=== PATIENT | female | born 1945 | race Caucasian/White ===

== ENCOUNTER 2021-05-06 09:43 | Inpatient (IN) ==
[2021-05-06] MEDS ORDERED: dexAMETHasone**PF** 10 MG/ML VIAL IV ONE (11:23)
[2021-05-06] MEDS ORDERED: ONDANSETRON INJ 2 MG/ML 2 ML VIAL IV STA (11:23)
[2021-05-06] MEDS: MoRPHine SULFATE 4 MG/ML 1 ML CARP\\VIAL IV PRN ×2 (11:48→13:31)
[2021-05-06 11:54] LABS: Basophils # (auto) 0.01 K/uL (0-0.2); Basophils % (auto) 0.1 %; Eosinophils # (auto) 0.23 K/uL (0-0.5); Eosinophils % (auto) 1.8 %; Hemoglobin 14.7 g/dL (12.0-16.0); Immature Granulocytes # (auto) 0.18 K/uL (0.00-0.02); Immature Granulocytes % (auto) 1.4 %; Lymphocytes # (auto) 1.77 K/uL (1.2-3.4); Lymphocytes % (auto) 13.7 %; Mean Corpuscular Hemoglobin 30.8 pg (25-34); Mean Corpuscular Hgb Conc 32.7 g/dL (32-36); Mean Corpuscular Volume 94.3 fL (80-100); Monocytes # (auto) 1.05 K/uL (0.11-0.59); Monocytes % (auto) 8.2 %; Neutrophils # (auto) 9.64 K/uL (1.4-6.5); Neutrophils % (auto) 74.8 %; Platelet Count 252 K/uL (130-400); RDW Coefficient of Variation 14.3 % (11.5-14.5); RDW Standard Deviation 49.1 fL (36.4-46.3); Red Blood Count 4.77 M/uL (4.2-5.4); White Blood Count 12.88 K/uL (4.8-10.8)
--- NOTE | 2021-05-06 12:03 | Emergency Department Note ---
Impression & Plan Spinal stenosis of lumbar region with radiculopathy, Lumbar radiculopathy ED Provider Note NAME: CHET MAYA AGE: 75 SEX: F : 1945 ARRIVES VIA: Walk-In INFORMANT: Patient, ED PROVIDER(S): Narinder Melissa DO CHIEF COMPLAINT: back pain HPI: The patient is a 75-year-old female who presented to emergency department for an evaluation of back pain and right leg pain. The patient has had problems with lumbar radiculopathy affecting her right leg. Her work-up is included an MRI which showed severe spinal stenosis. The patient's had injections and even tried therapy at home but does not appear to be doing well with her back pain. She was evaluated by her pain specialist and referred for orthopedic spine evaluation. The patient was felt to be a candidate for surgical intervention. She has been trying to manage this as an outpatient but returns emergency department today because of ongoing and worsening symptoms. She is been compliant with usual outpatient medication. She is finding it very difficult to put any weight on the right leg. She denies having any swelling. She does complain of some numbness especially on the right lateral aspect. ROS: See above HPI for pertinent positives & negatives. A total of 10 systems reviewed and were otherwise negative. PAST MEDICAL HISTORY: See Below PAST SURGICAL HISTORY: See Below FAMILY HISTORY: See Below SOCIAL HISTORY: See Below HOME MEDICATIONS: See Below ALLERGIES: See Below VITALS: See Below PHYSICAL EXAMINATION: GENERAL: The patient is awake and alert. The patient is somewhat anxious appearing and appears to be uncomfortable. EYES: The conjunctivae are clear. The pupils are round and reactive. EARS, NOSE, MOUTH AND THROAT: The nose is without any evidence of any deformity. NECK: The neck is nontender and supple. RESPIRATORY: Normal respiratory effort is noted there is no evidence of wheezing rhonchi or rales CARDIOVASCULAR: Regular rate and rhythm was noted to auscultation. Systolic murmur was suggested. GASTROINTESTINAL: The abdomen is soft. Abdomen is nontender. BACK: Low lumbar tenderness was noted to palpation. Range of motion does appear to elicit pain. MUSCULOSKELETAL/EXTREMITIES: There is no evidence of gross deformity full range of motion is noted in the hips and shoulders. SKIN: Skin is warm and dry. Pulses are symmetric in both feet. NEUROLOGIC: Patient is awake alert and oriented x3. The patient does have pain and uncomfortable sensation with straight leg raise on the right. Patellar tendon reflexes 1+ in the right knee and 2+ in the left knee. The patient is able to extend both toes. MEDICAL DECISION MAKING: The patient is a 75-year-old female who presented to the emergency department for an evaluation of back pain and lumbar radiculopathy. The patient has been having worsening symptoms in her right leg. She is established with a spinal specialist here. Given the patient's worsening and ongoing symptoms she was sent to the emergency department for further evaluation. I discussed her condition with the orthopedic spinal specialist. She may require surgical intervention but will require inpatient management for pain control. For this reason [facility] will [facility] the patient in the emergency department for further management and disposition. She was treated with pain medication in the emergency department. She was given a dose of Decadron. Triage Nursing notes reviewed. Prior medical records reviewed Vital Signs: reviewed and remarkable for no significant abnormalities Differential diagnosis: Musculoskeletal, disc herniation, fracture, metastatic disease, cord compression, discitis, sciatica, cauda equina, infection, aortic disease, renal colic, gastrointestinal, as well as other pathologies. ER treatment provided: See below Diagnostics interpreted by me: ECG: EKG was obtained in the emergency department. My interpretation is sinus rhythm at 81 bpm. PACs were noted. Diffuse ST segment abnormalities were noted. This was compared to a tracing from September [id number]. The ectopy is new otherwise no changes were noted. Cardiac Monitoring: An order was placed for continuous cardiac monitoring. The monitor shows a rate of 91 bpm with sinus rhythm. Laboratory studies: As stated above and show below. Imaging studies: See below Consultation(s): I discussed this case with Dr. Moise who is the patient's primary orthopedic flow specialist. I discussed this case with Dr. Aquino who [facility] She will evaluate the patient in the emergency department. 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 shellfish derived Allergy Severe SEAFOOD - Verified 05/06/21 11:50 DIFF BREATHING,HIVES,RASH iodine Allergy Unknown UNKNOWN Verified 05/06/21 11:50 Sulfa (Sulfonamide Allergy Unknown REDNESS/BURNING Verified 05/06/21 11:50 Antibiotics) OF SKIN amoxicillin Allergy Verified 05/06/21 13:25 terconazole [From Terazol 3] Allergy Verified 05/06/21 13:25 Home Meds Home Medications Medication Instructions Recorded Confirmed albuterol sulfate 90 mcg/actuation 2 puffs INH QID 03/26/18 05/06/21 aerosol inhaler (Ventolin HFA) aspirin 81 mg tablet,delayed 81 mg PO BID 03/26/18 05/06/21 release (Adult Low Dose Aspirin) diltiazem HCl 120 mg capsule,24 120 mg PO DAILY 06/12/20 05/06/21 hr,extended release epinephrine 0.3 mg/0.3 mL 0.3 mg IM Q15M PRN 09/18/20 05/06/21 injection, auto-injector lactobacillus combination no.8 3 3,000 mmu cells PO DAILY 09/18/20 05/06/21 billion cell capsule (Adult Probiotic) psyllium husk 0.4 gram capsule 0.4 g PO DAILY 09/18/20 05/06/21 (Daily Fiber) bisacodyl 5 mg tablet,delayed 10 mg PO DAILY tab 04/02/21 05/06/21 release (Dulcolax (bisacodyl)) fluticasone 250 mcg-salmeterol 50 1 inh INHALATION Q12H 05/06/21 05/06/21 mcg/dose blistr powdr for inhalation (Advair Diskus) fluticasone propionate 50 2 spray INTRANASAL DAILY PRN 05/06/21 05/06/21 mcg/actuation nasal spray,suspension lifitegrast 5 % eye drops in a 1 drp OPB BID 05/06/21 05/06/21 dropperette (Xiidra) pregabalin 150 mg capsule (Lyrica) 150 mg PO BID PRN 05/06/21 05/06/21 Previous Rx's Medication Instructions Recorded baclofen 10 mg tablet 10 mg PO TID PRN #90 tab 02/15/21 diclofenac sodium 1 % topical gel 2 g TOP QID PRN #900 g 02/15/21 tapentadol 50 mg tablet (Nucynta) 50 mg PO TID PRN #60 tab MDD 3 tabs 04/30/21 Results & Data (ED) Vital Signs Vital Signs - 24 hr 05/06/21 10:08 05/06/21 11:13 05/06/21 12:00 Temperature 36.7 C Temperature Source Temporal Artery Scan Pulse Rate 94 H Pulse Rate [Finger] 78 Respiratory Rate 18 18 Respiratory Effort / Characteristics Non-Labored Respiratory Depth Normal Respiratory Pattern Regular Blood Pressure 157/123 H Blood Pressure [Left Arm] 139/81 Blood Pressure Mean 134 Blood Pressure Mean [Left Arm] 100 Blood Pressure Position [Left Arm] Pulse Oximetry 95 95 95 Oxygen Delivery Method Room Air Room Air Room Air Sepsis Recent Fever Within 48 Hours No Sepsis New/Unexplained Change in Mental Status No Sepsis Action Taken by Nursing No Action Required 05/06/21 12:04 Temperature Temperature Source Pulse Rate Pulse Rate [Finger] 74 Respiratory Rate 16 Respiratory Effort / Characteristics Respiratory Depth Respiratory Pattern Blood Pressure Blood Pressure [Left Arm] 117/64 Blood Pressure Mean Blood Pressure Mean [Left Arm] 81 Blood Pressure Position [Left Arm] Sitting Pulse Oximetry 94 Oxygen Delivery Method Room Air Sepsis Recent Fever Within 48 Hours Sepsis New/Unexplained Change in Mental Status Sepsis Action Taken by Assisted Medications Current Medication List: was personally reviewed by me Laboratory Data Attestation: I reviewed the patient's lab results. Result diagrams: 05/06/21 11:46 05/06/21 11:46 Lab Results 05/06/21 05/06/21 05/06/21 Range/Units 11:46 11:46 11:46 WBC 12.88 H (4.8-10.8) K/uL RBC 4.77 (4.2-5.4) M/uL Hgb 14.7 (12.0-16.0) g/dL Hct 45.0 (37-47) % MCV 94.3 (80-100) fL MCH 30.8 (25-34) pg MCHC 32.7 (32-36) g/dL RDW Std Deviation 49.1 H (36.4-46.3) fL RDW Coeff of Aliza 14.3 (11.5-14.5) % Plt Count 252 (130-400) K/uL MPV 10.0 (7.4-10.4) fL Immature Gran % (Auto) 1.4 % Neut % (Auto) 74.8 % Lymph % (Auto) 13.7 % [place] % (Auto) 8.2 % Eos % (Auto) 1.8 % Baso % (Auto) 0.1 % Neut # (Auto) 9.64 H (1.4-6.5) K/uL Lymph # (Auto) 1.77 (1.2-3.4) K/uL [place] # (Auto) 1.05 H (0.11-0.59) K/uL Eos # (Auto) 0.23 (0-0.5) K/uL Baso # (Auto) 0.01 (0-0.2) K/uL Immature Gran # (Auto) 0.18 H (0.00-0.02) K/uL PT 9.5 (9.0-12.0) Seconds INR 0.9 (0.9-1.1) Sodium 140 (136-145) mmol/L Potassium 3.1 L (3.5-5.1) mmol/L Chloride 103 (98-107) mmol/L Carbon Dioxide 27 (21-32) mmol/L Anion Gap 10.0 (3-11) BUN 10 (7-18) mg/dl Creatinine 0.78 (0.6-1.2) mg/dl Est Cr Clr Drug Dosing Not Reportable Est GFR ( Amer) 86.8 ml/min Est GFR (Non-Af Amer) 74.9 ml/min BUN/Creatinine Ratio 13.0 (10-20) Glucose 93 (70-99) mg/dl Calcium 9.3 (8.5-10.1) mg/dl Total Bilirubin 0.7 (0.2-1) mg/dl AST 18 (15-37) U/L ALT 39 (12-78) U/L Alkaline Phosphatase 75 (45-117) U/L Troponin I < 0.015 (0-0.045) ng/ml Total Protein 6.9 (6.4-8.2) gm/dl Albumin 3.4 (3.4-5.0) gm/dl Globulin 3.5 (2.5-4.0) gm/dl Albumin/Globulin Ratio 1.0 (0.9-2) Lipase 97 (73-393) U/L Urine Color Urine Appearance (Clear) Urine pH (4.5-7.5) Ur Specific [place] (1.000-1.030) Urine Protein (Negative) Urine Glucose (UA) (Negative) Urine Ketones (Negative) Urine Blood (Negative) Urine Nitrite (Negative) Urine Bilirubin (Negative) Urine Urobilinogen (Negative) Ur Leukocyte Esterase (Negative) Urine WBC (Auto) (0-5) /hpf Urine RBC (Auto) (0-4) /hpf U Hyaline Cast (Auto) (0-5) /lpf U Epithel Cells (Auto) (0-5) /lpf Urine Bacteria (Auto) (Negative) SARS-CoV-2, RNA, NAAT (NEGATIVE) 05/06/21 05/06/21 Range/Units 11:55 11:55 WBC (4.8-10.8) K/uL RBC (4.2-5.4) M/uL Hgb (12.0-16.0) g/dL Hct (37-47) % MCV (80-100) fL MCH (25-34) pg MCHC (32-36) g/dL RDW Std Deviation (36.4-46.3) fL RDW Coeff of Aliza (11.5-14.5) % Plt Count (130-400) K/uL MPV (7.4-10.4) fL Immature Gran % (Auto) % Neut % (Auto) % Lymph % (Auto) % [place] % (Auto) % Eos % (Auto) % Baso % (Auto) % Neut # (Auto) (1.4-6.5) K/uL Lymph # (Auto) (1.2-3.4) K/uL [place] # (Auto) (0.11-0.59) K/uL Eos # (Auto) (0-0.5) K/uL Baso # (Auto) (0-0.2) K/uL Immature Gran # (Auto) (0.00-0.02) K/uL PT (9.0-12.0) Seconds INR (0.9-1.1) Sodium (136-145) mmol/L Potassium (3.5-5.1) mmol/L Chloride (98-107) mmol/L Carbon Dioxide (21-32) mmol/L Anion Gap (3-11) BUN (7-18) mg/dl Creatinine (0.6-1.2) mg/dl Est Cr Clr Drug Dosing Est GFR ( Amer) ml/min Est GFR (Non-Af Amer) ml/min BUN/Creatinine Ratio (10-20) Glucose (70-99) mg/dl Calcium (8.5-10.1) mg/dl Total Bilirubin (0.2-1) mg/dl AST (15-37) U/L ALT (12-78) U/L Alkaline Phosphatase (45-117) U/L Troponin I (0-0.045) ng/ml Total Protein (6.4-8.2) gm/dl Albumin (3.4-5.0) gm/dl Globulin (2.5-4.0) gm/dl Albumin/Globulin Ratio (0.9-2) Lipase (73-393) U/L Urine Color Yellow Urine Appearance Clear (Clear) Urine pH 6.0 (4.5-7.5) Ur Specific [place] 1.004 (1.000-1.030) Urine Protein Negative (Negative) Urine Glucose (UA) Negative (Negative) Urine Ketones Negative (Negative) Urine Blood Negative (Negative) Urine Nitrite Negative (Negative) Urine Bilirubin Negative (Negative) Urine Urobilinogen Negative (Negative) Ur Leukocyte Esterase 1+ H (Negative) Urine WBC (Auto) 5-10 H (0-5) /hpf Urine RBC (Auto) 0-4 (0-4) /hpf U Hyaline Cast (Auto) 0 (0-5) /lpf U Epithel Cells (Auto) 5-10 H (0-5) /lpf Urine Bacteria (Auto) 2+ H (Negative) SARS-CoV-2, RNA, NAAT NEGATIVE (NEGATIVE) Administered Medications Discontinued Medications Dexamethasone Sodium Phosphate (DexamethasonePf 10 Mg/Ml Vial) 10 mg IV NOW ONE Stop: 05/06/21 11:24 Last Admin: 05/06/21 11:49 Dose: 10 mg Documented by: [id number] Morphine Sulfate (Morphine Sulfate 4 Mg/Ml 1 Ml Carp\Vial) 4 mg IV Q15M PRN PRN Reason: Pain Stop: 05/20/21 11:22 Last Admin: 05/06/21 13:31 Dose: 4 mg Documented by: [id number] Admin: 05/06/21 11:48 Dose: 4 mg Documented by: [id number] Ondansetron HCl (Ondansetron Inj 2 Mg/Ml 2 Ml Vial) 4 mg IV NOW STA Stop: 05/06/21 11:24 Last Admin: 05/06/21 11:49 Dose: 4 mg Documented by: [id number] Potassium Chloride (Potassium Chloride Crtab 20 Meq Tabcr) 40 meq PO NOW STA Stop: 05/06/21 12:36 Last Admin: 05/06/21 13:31 Dose: 40 meq Documented by: [id number] Discharge Plan Visit Data Chief Complaint: Back Injury/Pain Stated Complaint: RIGHTSIDE BACK PAIN ED Provider: Narinder Melissa Discharge Problem: Spinal stenosis of lumbar region with radiculopathy, Lumbar radiculopathy Patient Disposition: Being Evaluated by Hospitalist Discharge Instructions Interventions: ED Discharge Assessment Last Done: 05/06/21 15:16
[2021-05-06 12:05] LABS: INR 0.9 (0.9-1.1); Prothrombin Time 9.5 Seconds (9.0-12.0)
[2021-05-06 12:10] LABS: Appearance Urine Clear (Clear); Bacteria Urine Automated 2+ (Negative); Bilirubin Urine Negative (Negative); Blood Urine Negative (Negative); Cast Urine Automated 0 /lpf (0-5); Color Urine Yellow; Glucose Urine UA Negative (Negative); Ketones Urine Negative (Negative); Leukocyte Esterase Urine 1+ (Negative); Nitrite Urine Negative (Negative); Protein Urine Negative (Negative); RBC Urine Automated 0-4 /hpf (0-4); Specific Gravity Urine 1.004 (1.000-1.030); Urobilinogen Urine Negative (Negative)
[2021-05-06 12:12] LABS: Alanine Aminotransferase 39 U/L (12-78); Albumin Level 3.4 gm/dl (3.4-5.0); Aspartate Aminotransferase 18 U/L (15-37); Blood Urea Nitrogen 10 mg/dl (7-18); Calcium 9.3 mg/dl (8.5-10.1); Carbon Dioxide 27 mmol/L (21-32); Chloride 103 mmol/L (98-107); Est GFR (African American) 86.8 ml/min; Est GFR (Non-African American) 74.9 ml/min; Glucose 93 mg/dl (70-99); Lipase 97 U/L (73-393); Potassium 3.1 mmol/L (3.5-5.1); Sodium 140 mmol/L (136-145)
[2021-05-06 12:16] LABS: Alkaline Phosphatase 75 U/L (45-117); Bilirubin,Total 0.7 mg/dl (0.2-1); Globulin 3.5 gm/dl (2.5-4.0); Total Protein 6.9 gm/dl (6.4-8.2); Troponin I < 0.015 ng/ml (0-0.045)
--- NOTE | 2021-05-06 12:34 | History & Physical Report ---
Date of Service May 06, 2021 Assessment & Plan (1) Spinal stenosis of lumbar region with radiculopathy: Plan: Presents with intractable pain despite numerous interventions as an outpatient Needs admission for pain control and urgent surgical evaluation She recently had an MRI as an outpatient several weeks ago which shows significant spinal stenosis -Admit to medical-telemetry unit given frequent ectopy for further evaluation -Consult orthopedic spine surgery -Keep n.p.o. after midnight in case of surgery on Friday, but could advance diet if no surgery to be performed -Continue IV morphine as needed for severe pain, as needed Nucynta as needed for moderate pain -We will hold off on any further steroids at this time-she recently completed 2 Medrol Dosepaks in a row -Continue home Lyrica For preoperative evaluation, given systolic murmur on exam and PACs-check echocardiogram Otherwise, she is able to achieve at least 4 METS without any angina If echocardiogram without significant valvular disease, she would be at average perioperative cardiovascular risk for this intermediate risk procedure and should proceed with surgery if desired. Discussed all this with the patient. (2) Asthma: Plan: Has been having some wheezing recently No hypoxia here Continue home albuterol, Flonase nasal spray, and fluticasone/Vilanterol inhaler once daily (3) HTN (hypertension), benign: Plan: Blood pressures are elevated Continue home diltiazem -Could titrate up on diltiazem dose if needed (4) Osteoporosis: Plan: No acute issues Receives Prolia shots every 6 months (5) History of breast cancer: Plan: In remission No longer uses any maintenance medications (6) Migraines: Plan: Uses otpl-cfc-snwawsu medications for abortive therapy No current issues (7) Neuropathy: Plan: Continue Lyrica 150 mg p.o. at bedtime (8) Chronic constipation: Plan: Worsened in setting of chronic opioid use Continue home Motegrity if available, daily bisacodyl, fiber supplement (9) Sjogrens syndrome: Plan: Continue home eyedrops (10) Hypokalemia: Plan: Replaced with p.o. potassium chloride 20 mEq Follow BMP and magnesium in the morning (11) Abnormal finding on urinalysis: Plan: Patient has no urinary symptoms There are as many epithelial cells in his WBCs in the urinalysis and the sample may be contaminated Follow urine culture Hold off on antibiotics at this time Leukocytosis on CBC is most likely secondary to recent corticosteroid use as an outpatient Plan: DVT prophylaxis-SCDs Disposition-admit to medical floor telemetry History of Present Illness Chief Complaint: Back and right lower extremity pain Primary Care Provider: Norah Cast This patient is a 75-year-old female with a longstanding history of lower back pain with right lower extremity radiculopathy and right hip pain, breast cancer in remission, asthma, migraines, HTN, osteoporosis, chronic constipation, Sjogren's syndrome, neuropathy, who presents to the ER with intractable lower back pain with right lower extremity radiculopathy making it extremely difficult to walk more than a couple of steps. She has received numerous interventions with pain management in the past including RFA's, AGATA's, and SI joint injections. She most recently had a right trochanteric bursitis injection with orthopedics. She is on chronic opioid therapy as well as with Lyrica and still with not much relief. She has been seen by orthopedic spine surgery as an outpatient and presents to the ER for intractable pain and further more urgent evaluation by spine surgery for surgical intervention. From a cardiac standpoint, patient reports she had a nuclear stress test in the recent past that was normal, and she can crawl up and down the stairs currently without any chest pain or shortness of breath. She has never had any angina or other cardiac issues. In the ER, she was given IV Decadron and IV morphine. She will be admitted to the hospital service for intractable lower back pain with right lower extremity radiculopathy and preoperative evaluation. Allergies Allergy/AdvReac Type Severity Reaction Status Date / Time [place] And Derivatives Allergy Severe EXTREME Verified 05/06/21 11:50 BREATHING DIFFICULTY. shellfish derived Allergy Severe SEAFOOD - Verified 05/06/21 11:50 DIFF BREATHING,HIVES,RASH iodine Allergy Unknown UNKNOWN Verified 05/06/21 11:50 Sulfa (Sulfonamide Allergy Unknown REDNESS/BURNING Verified 05/06/21 11:50 Antibiotics) OF SKIN amoxicillin Allergy Verified 05/06/21 13:25 terconazole [From Terazol 3] Allergy Verified 05/06/21 13:25 Home Medications Medication Instructions Recorded Confirmed Type albuterol sulfate 90 mcg/actuation 2 puffs INH QID 03/26/18 05/06/21 History aerosol inhaler (Ventolin HFA) aspirin 81 mg tablet,delayed 81 mg PO BID 03/26/18 05/06/21 History release (Adult Low Dose Aspirin) diltiazem HCl 120 mg capsule,24 120 mg PO DAILY 06/12/20 05/06/21 History hr,extended release epinephrine 0.3 mg/0.3 mL 0.3 mg IM Q15M PRN 09/18/20 05/06/21 History injection, auto-injector lactobacillus combination no.8 3 3,000 mmu cells PO DAILY 09/18/20 05/06/21 History billion cell capsule (Adult Probiotic) psyllium husk 0.4 gram capsule 0.4 g PO DAILY 09/18/20 05/06/21 History (Daily Fiber) baclofen 10 mg tablet 10 mg PO TID PRN #90 tab 02/15/21 05/06/21 Rx diclofenac sodium 1 % topical gel 2 g TOP QID PRN #900 g 02/15/21 05/06/21 Rx bisacodyl 5 mg tablet,delayed 10 mg PO DAILY tab 04/02/21 05/06/21 History release (Dulcolax (bisacodyl)) tapentadol 50 mg tablet (Nucynta) 50 mg PO TID PRN #60 tab MDD 3 tabs 04/30/21 05/06/21 Rx fluticasone 250 mcg-salmeterol 50 1 inh INHALATION Q12H 05/06/21 05/06/21 History mcg/dose blistr powdr for inhalation (Advair Diskus) fluticasone propionate 50 2 spray INTRANASAL DAILY PRN 05/06/21 05/06/21 History mcg/actuation nasal spray,suspension lifitegrast 5 % eye drops in a 1 drp OPB BID 05/06/21 05/06/21 History dropperette (Xiidra) pregabalin 150 mg capsule (Lyrica) 150 mg PO BID PRN 05/06/21 05/06/21 History prucalopride 2 mg tablet 2 mg PO DAILY 05/07/21 05/07/21 History (Motegrity) Past Med/Surg History Medical History (Updated 05/07/21 @ 00:40 by Genna Aquino MD) Asthma Chronic constipation Degenerative joint disease of left midfoot History of breast cancer History of pneumothorax HTN (hypertension), benign Left knee DJD Migraines Neuropathy Osteoporosis Pes anserinus bursitis of right knee Sjogrens syndrome Spinal stenosis of lumbar region with radiculopathy Thyroid nodule Surgical History (Updated 05/07/21 @ 00:37 by Genna Aquino MD) History of appendectomy History of carpal tunnel release of both wrists History of cataract extraction History of cholecystectomy History of lumbar spinal fusion 2014 History of lumpectomy of right breast History of total knee arthroplasty Family History (Updated 05/07/21 @ 00:30 by Genna Aquino MD) Other Family history non-contributory Social History (Updated 05/07/21 @ 00:30 by Genna Aquino MD) Smoking Status: Never smoker Hx Alcohol Use: Yes Alcohol type: beer Hx Substance Use: No Preferred Language: [place] Communication Ability: Effective Signal Integrity Engineer Required: No Beliefs That Will Affect Care: None marital status: / Current Living Situation: Alone Feels Safe at Home: Yes Assistive Devices: Cane, Denture - Upper and Glasses Review of Systems Review of Systems: All systems reviewed & are unremarkable except as noted in HPI & below No incontinence to bowel or bladder Physical Exam Constitutional: WD/WN, vitals as above Eyes: PERRL, conjunctivae normal, anicteric sclerae ENMT: external ear and nose normal, oropharynx normal Neck: trachea midline, no thyromegaly Respiratory: normal respiratory effort, lungs clear to auscultation Cardiovascular: Rate/Rhythm: regular rate and regular rhythm (With frequent ectopy) Heart Sounds: + murmur (2/6 systolic murmur heard best at the right upper sternal border) Vessels: normal peripheral pulses; no JVD, no carotid bruit and no abdominal aortic bruit Extremities: no edema Chest (Breasts): Chest: normal inspection of chest Gastrointestinal (Abdomen): normal bowel sounds, soft, nontender, no hepatosplenomegaly Musculoskeletal: Extremities: extremities normal to inspection; no cyanosis and no clubbing Skin: no rashes, warm and dry Neurologic: moves all extremities and awake; no focal motor deficits Positive straight leg raise on the right DTRs diminished throughout bilateral lower extremities Sensation intact to light touch throughout lower extremities Psychiatric: A+Ox3, euthymic affect Lymphatic: no lymphedema Results & Data Results & Data ([facility]) Vital Signs (Past 12 Hours) Vital Signs Temp Pulse Pulse Resp BP BP Pulse Ox 05/06/21 12:04 74 16 117/64 94 05/06/21 12:00 95 05/06/21 11:13 78 18 139/81 95 05/06/21 10:08 36.7 C 94 H 18 157/123 H 95 Laboratory Results 05/06/21 05/06/21 05/06/21 Range/Units 11:55 11:55 11:46 WBC (4.8-10.8) K/uL RBC (4.2-5.4) M/uL Hgb (12.0-16.0) g/dL Hct (37-47) % MCV (80-100) fL MCH (25-34) pg MCHC (32-36) g/dL RDW Std Deviation (36.4-46.3) fL RDW Coeff of Aliza (11.5-14.5) % Plt Count (130-400) K/uL MPV (7.4-10.4) fL Immature Gran % (Auto) % Neut % (Auto) % Lymph % (Auto) % Haines % (Auto) % Eos % (Auto) % Baso % (Auto) % Neut # (Auto) (1.4-6.5) K/uL Lymph # (Auto) (1.2-3.4) K/uL Haines # (Auto) (0.11-0.59) K/uL Eos # (Auto) (0-0.5) K/uL Baso # (Auto) (0-0.2) K/uL Immature Gran # (Auto) (0.00-0.02) K/uL PT (9.0-12.0) Seconds INR (0.9-1.1) Sodium (136-145) mmol/L Potassium (3.5-5.1) mmol/L Chloride (98-107) mmol/L Carbon Dioxide (21-32) mmol/L Anion Gap (3-11) BUN (7-18) mg/dl Creatinine (0.6-1.2) mg/dl Est Cr Clr Drug Dosing Est GFR ( Amer) ml/min Est GFR (Non-Af Amer) ml/min BUN/Creatinine Ratio (10-20) Glucose (70-99) mg/dl Calcium (8.5-10.1) mg/dl Total Bilirubin (0.2-1) mg/dl AST (15-37) U/L ALT (12-78) U/L Alkaline Phosphatase (45-117) U/L Troponin I (0-0.045) ng/ml Total Protein (6.4-8.2) gm/dl Albumin (3.4-5.0) gm/dl Globulin (2.5-4.0) gm/dl Albumin/Globulin Ratio (0.9-2) Lipase (73-393) U/L Urine Color Yellow Urine Appearance Clear (Clear) Urine pH 6.0 (4.5-7.5) Ur Specific [place] 1.004 (1.000-1.030) Urine Protein Negative (Negative) Urine Glucose (UA) Negative (Negative) Urine Ketones Negative (Negative) Urine Blood Negative (Negative) Urine Nitrite Negative (Negative) Urine Bilirubin Negative (Negative) Urine Urobilinogen Negative (Negative) Ur Leukocyte Esterase 1+ H (Negative) Urine WBC (Auto) 5-10 H (0-5) /hpf Urine RBC (Auto) 0-4 (0-4) /hpf U Hyaline Cast (Auto) 0 (0-5) /lpf U Epithel Cells (Auto) 5-10 H (0-5) /lpf Urine Bacteria (Auto) 2+ H (Negative) Hepatitis C Ab Screen Pending SARS-CoV-2, RNA, NAAT NEGATIVE (NEGATIVE) 05/06/21 05/06/21 05/06/21 Range/Units 11:46 11:46 11:46 WBC 12.88 H (4.8-10.8) K/uL RBC 4.77 (4.2-5.4) M/uL Hgb 14.7 (12.0-16.0) g/dL Hct 45.0 (37-47) % MCV 94.3 (80-100) fL MCH 30.8 (25-34) pg MCHC 32.7 (32-36) g/dL RDW Std Deviation 49.1 H (36.4-46.3) fL RDW Coeff of Aliza 14.3 (11.5-14.5) % Plt Count 252 (130-400) K/uL MPV 10.0 (7.4-10.4) fL Immature Gran % (Auto) 1.4 % Neut % (Auto) 74.8 % Lymph % (Auto) 13.7 % Haines % (Auto) 8.2 % Eos % (Auto) 1.8 % Baso % (Auto) 0.1 % Neut # (Auto) 9.64 H (1.4-6.5) K/uL Lymph # (Auto) 1.77 (1.2-3.4) K/uL Haines # (Auto) 1.05 H (0.11-0.59) K/uL Eos # (Auto) 0.23 (0-0.5) K/uL Baso # (Auto) 0.01 (0-0.2) K/uL Immature Gran # (Auto) 0.18 H (0.00-0.02) K/uL PT 9.5 (9.0-12.0) Seconds INR 0.9 (0.9-1.1) Sodium 140 (136-145) mmol/L Potassium 3.1 L (3.5-5.1) mmol/L Chloride 103 (98-107) mmol/L Carbon Dioxide 27 (21-32) mmol/L Anion Gap 10.0 (3-11) BUN 10 (7-18) mg/dl Creatinine 0.78 (0.6-1.2) mg/dl Est Cr Clr Drug Dosing Not Reportable Est GFR ( Amer) 86.8 ml/min Est GFR (Non-Af Amer) 74.9 ml/min BUN/Creatinine Ratio 13.0 (10-20) Glucose 93 (70-99) mg/dl Calcium 9.3 (8.5-10.1) mg/dl Total Bilirubin 0.7 (0.2-1) mg/dl AST 18 (15-37) U/L ALT 39 (12-78) U/L Alkaline Phosphatase 75 (45-117) U/L Troponin I < 0.015 (0-0.045) ng/ml Total Protein 6.9 (6.4-8.2) gm/dl Albumin 3.4 (3.4-5.0) gm/dl Globulin 3.5 (2.5-4.0) gm/dl Albumin/Globulin Ratio 1.0 (0.9-2) Lipase 97 (73-393) U/L Urine Color Urine Appearance (Clear) Urine pH (4.5-7.5) Ur Specific [place] (1.000-1.030) Urine Protein (Negative) Urine Glucose (UA) (Negative) Urine Ketones (Negative) Urine Blood (Negative) Urine Nitrite (Negative) Urine Bilirubin (Negative) Urine Urobilinogen (Negative) Ur Leukocyte Esterase (Negative) Urine WBC (Auto) (0-5) /hpf Urine RBC (Auto) (0-4) /hpf U Hyaline Cast (Auto) (0-5) /lpf U Epithel Cells (Auto) (0-5) /lpf Urine Bacteria (Auto) (Negative) Hepatitis C Ab Screen SARS-CoV-2, RNA, NAAT (NEGATIVE) Diagnostic Findings Chest X-Ray 05/06/21 13:17 XR chest 1V portable CLINICAL HISTORY: hypoxia,preop. Evaluate cardiopulmonary status COMPARISON STUDY: No previous studies for comparison. TECHNIQUE: 1 view of the chest FINDINGS: Single frontal view of the chest demonstrates the cardiomediastinal silhouette to be within normal limits. There is a decreased inspiratory effort with elevation of the hemidiaphragms and crowding of the bronchovascular markings at the lung bases and centrally. The lungs are clear of alveolar opacities. There is no evidence for pleural effusion. There is no evidence for vascular congestion. There is no acute osseous pathology. IMPRESSION: There is a decreased inspiratory effort with otherwise no acute chest disease. ACT 112: Negative or not required by law. Electronically signed by: Van Baumann M.D. 05/06/2021 2:18 PM ECG Additional Comments: Normal sinus rhythm with frequent PACs, prolonged QTC at 483 No ischemic changes Code Status & VTE Plan Code Status Full code VTE Prophylaxis Plan VTE Prophylaxis will be ordered: Yes PG Care Time/CCT Total # of Minutes Spent Total Time Spent with Patient: Total time spent is greater than 50% in coordination of care (as documented) at patient's floor/unit and/or counseling patient: Coding Level of Care Code 28295 Initial Inpt Care Lvl 3 Diagnoses Spinal stenosis of lumbar region with radiculopathy M48.061; M54.16 Asthma J45.909 HTN (hypertension), benign I10 Osteoporosis M81.0 History of breast cancer Z85.3 Migraines G43.909 Neuropathy G62.9 Chronic constipation K59.09 Sjogrens syndrome M35.00 Hypokalemia E87.6 Abnormal finding on urinalysis R82.90
[2021-05-06] MEDS ORDERED: POTASSIUM CHLORIDE CRTAB 20 MEQ TABCR PO STA (12:35)
--- NOTE | 2021-05-06 14:19 | XRay Report ---
XR chest 1V portable CLINICAL HISTORY: hypoxia,preop. Evaluate cardiopulmonary status COMPARISON STUDY: No previous studies for comparison. TECHNIQUE: 1 view of the chest FINDINGS: Single frontal view of the chest demonstrates the cardiomediastinal silhouette to be within normal li mits. There is a decreased inspiratory effort with elevation of the hemidiaphragms and crowding of th e bronchovascular markings at the lung bases and centrally. The lungs are clear of alveolar opacities . There is no evidence for pleural effusion. There is no evidence for vascular congestion. There is n o acute osseous pathology. IMPRESSION: There is a decreased inspiratory effort with otherwise no acute chest disease. ACT 112: Negative or not required by law. Electronically signed by: Van Baumann M.D. 05/06/2021 2:18 PM
--- NOTE | 2021-05-06 14:32 | XCELERA ---
[id number]
[2021-05-06] MEDS ORDERED: POLYETHYLENE (MIRALAX) 17 GM PACK PO PRN (15:41)
[2021-05-06] MEDS ORDERED: BACLOFEN 10 MG TAB PO PRN (15:41)
[2021-05-06] MEDS ORDERED: ACETAMINOPHEN 325 MG TAB PO PRN (15:41)
[2021-05-06] MEDS ORDERED: DICLOFENAC SOD 1% GEL 100 GM TUBE EXT PRN (15:41)
[2021-05-06] MEDS ORDERED: ONDANSETRON INJ 2 MG/ML 2 ML VIAL IV PRN (15:41)
[2021-05-06] MEDS ORDERED: FLUTICASONE PROPIONATE NA SPR 16 GM BTL NAE PRN (15:41)
[2021-05-06] MEDS ORDERED: INFLUENZA VACCINE HIGH DOSE PF 65+ 0.7 ML SYR IM ONE (16:50)
[2021-05-06] MEDS ORDERED: ALBUTEROL HFA 8 GM INHALER INH SCH (17:00)
--- NOTE | 2021-05-06 17:19 | Electrocardiogram Report ---
Test Reason : Blood Pressure : / mmHG Vent. Rate : 081 BPM Atrial Rate : 081 BPM P-R Int : 142 ms QRS Dur : 076 ms QT Int : 416 ms P-R-T Axes : 048 011 048 degrees QTc Int : 483 ms Poor data quality, interpretation may be adversely affected Sinus rhythm with Premature atrial complexes Abnormal ECG When compared with ECG of 03-SEP-2012 11:59, Premature atrial complexes are now Present QT has lengthened Confirmed by Eric Barger ([id number]) on 05/06/2021 5:18:43 PM Referred By: REFERRED SELF Confirmed By:Lucas Barger
[2021-05-06] MEDS ORDERED: TAPENTADOL HCL 50 MG TAB PO SCH (17:45)
[2021-05-06] MEDS: PREGABALIN 150 MG CAP PO SCH (17:49)
[2021-05-06] MEDS: TAPENTADOL HCL 50 MG TAB PO SCH (17:49)
[2021-05-06] MEDS: ALBUTEROL HFA 8 GM INHALER INH SCH (20:10)
[2021-05-06] MEDS: LIFITEGRAST 5% OP SCH (21:55)
[2021-05-06] MEDS: MoRPHine SULFATE 2 MG/ML CARP IV PRN (22:02)
[2021-05-07] MEDS: MoRPHine SULFATE 2 MG/ML CARP IV PRN ×2 (02:45→10:33)
[2021-05-07] MEDS: dilTIAZem ER 120 MG CAPCR PO SCH (07:29)
[2021-05-07] MEDS: bisacodyL 5 MG TABEC PO SCH (07:29)
[2021-05-07] MEDS: FLUTICASONE/VILANTEROL 200/25MCG 14 PUFFS/INHALER INH SCH (07:30)
[2021-05-07] MEDS: LIFITEGRAST 5% OP SCH ×2 (07:31→20:56)
[2021-05-07] MEDS: TAPENTADOL HCL 50 MG TAB PO SCH ×3 (07:34→21:00)
[2021-05-07] MEDS: ALBUTEROL HFA 8 GM INHALER INH SCH ×4 (08:02→20:10)
[2021-05-07] MEDS ORDERED: PSYLLIUM HUSK 0.4 GM PO SCH (09:00)
--- NOTE | 2021-05-07 11:09 | Orthopedic Consultation ---
Date of Consultation May 07, 2021 Assessment & Plan (1) Spinal stenosis of lumbar region with radiculopathy: At this time patient has known adjacent level spinal stenosis L3-L4 with severe spinal stenosis and neuroforaminal disease creating an L3-L4 radiculopathy. She is undergone extensive course of nonoperative care and now is requiring a lumbar decompression and fusion L3-L4 with removal of instrumentation L4-S1. History of Present Illness Reason for Consultation: Right leg pain and weakness Attending Physician: Dylan Fried DO History of Present Illness This is a 75-year-old female well-known to me the presents with steady decline in status. She has pain at lumbosacral junction rating into the right buttock anterior lateral thigh to just below her right knee. She is undergone extensive work-up including multiple injections without any long-term relief. Her pain is incapacitating she is unable to weight-bear and experiencing a strength deficit. Allergies Allergy/AdvReac Type Severity Reaction Status Date / Time [place] And Derivatives Allergy Severe EXTREME Verified 05/06/21 11:50 BREATHING DIFFICULTY. shellfish derived Allergy Severe SEAFOOD - Verified 05/06/21 11:50 DIFF BREATHING,HIVES,RASH iodine Allergy Unknown UNKNOWN Verified 05/06/21 11:50 Sulfa (Sulfonamide Allergy Unknown REDNESS/BURNING Verified 05/06/21 11:50 Antibiotics) OF SKIN amoxicillin Allergy Verified 05/06/21 13:25 terconazole [From Terazol 3] Allergy Verified 05/06/21 13:25 Home Medications Medication Instructions Recorded Confirmed Type albuterol sulfate 90 mcg/actuation 2 puffs INH QID 03/26/18 05/06/21 History aerosol inhaler (Ventolin HFA) aspirin 81 mg tablet,delayed 81 mg PO BID 03/26/18 05/06/21 History release (Adult Low Dose Aspirin) diltiazem HCl 120 mg capsule,24 120 mg PO DAILY 06/12/20 05/06/21 History hr,extended release epinephrine 0.3 mg/0.3 mL 0.3 mg IM Q15M PRN 09/18/20 05/06/21 History injection, auto-injector lactobacillus combination no.8 3 3,000 mmu cells PO DAILY 09/18/20 05/06/21 History billion cell capsule (Adult Probiotic) psyllium husk 0.4 gram capsule 0.4 g PO DAILY 09/18/20 05/06/21 History (Daily Fiber) baclofen 10 mg tablet 10 mg PO TID PRN #90 tab 02/15/21 05/06/21 Rx diclofenac sodium 1 % topical gel 2 g TOP QID PRN #900 g 02/15/21 05/06/21 Rx bisacodyl 5 mg tablet,delayed 10 mg PO DAILY tab 04/02/21 05/06/21 History release (Dulcolax (bisacodyl)) tapentadol 50 mg tablet (Nucynta) 50 mg PO TID PRN #60 tab MDD 3 tabs 04/30/21 05/06/21 Rx fluticasone 250 mcg-salmeterol 50 1 inh INHALATION Q12H 05/06/21 05/06/21 History mcg/dose blistr powdr for inhalation (Advair Diskus) fluticasone propionate 50 2 spray INTRANASAL DAILY PRN 05/06/21 05/06/21 History mcg/actuation nasal spray,suspension lifitegrast 5 % eye drops in a 1 drp OPB BID 05/06/21 05/06/21 History dropperette (Xiidra) pregabalin 150 mg capsule (Lyrica) 150 mg PO BID PRN 05/06/21 05/06/21 History prucalopride 2 mg tablet 2 mg PO DAILY 05/07/21 05/07/21 History (Motegrity) Patient History Medical History (Updated 05/07/21 @ 00:40 by Genna Aquino MD) Asthma Chronic constipation Degenerative joint disease of left midfoot History of breast cancer History of pneumothorax HTN (hypertension), benign Left knee DJD Migraines Neuropathy Osteoporosis Pes anserinus bursitis of right knee Sjogrens syndrome Spinal stenosis of lumbar region with radiculopathy Thyroid nodule Surgical History (Updated 05/07/21 @ 00:37 by Genna Aquino MD) History of appendectomy History of carpal tunnel release of both wrists History of cataract extraction History of cholecystectomy History of lumbar spinal fusion 2014 History of lumpectomy of right breast History of total knee arthroplasty Family History (Updated 05/07/21 @ 00:30 by Genna Aquino MD) Other Family history non-contributory Social History (Updated 11/29/21 @ 00:30 by Genna Aquino MD) Smoking Status: Never smoker Hx Alcohol Use: Yes Alcohol type: beer Hx Substance Use: No Preferred Language: Vietnamese Communication Ability: Effective Bank Runner Required: No Beliefs That Will Affect Care: None marital status: / Current Living Situation: Alone Feels Safe at Home: Yes Assistive Devices: Cane, Denture - Upper and Glasses Physical Exam Physical Exam: On exam she is in bed. She is is exhibit breakaway weakness to testing the right quadricep compared to the left. She has plantar flexion dorsiflexion intact with known sensory deficits. Results & Data ([facility]) Vital Signs (Past 12 Hours) Vital Signs Temp Pulse Pulse Resp BP Pulse Ox 05/07/21 10:18 77 16 94 05/07/21 10:02 80 05/07/21 08:13 36.5 C 78 20 120/75 93 05/07/21 08:12 88 22 95 05/07/21 04:31 90 05/07/21 02:48 36.8 C 85 18 153/79 H 96 05/06/21 23:28 36.8 C 92 H 18 150/74 H 96
--- NOTE | 2021-05-07 12:47 | Anesthesiology Consultation ---
Date of Service May 07, 2021 Assessment & Plan Chart Review Chart Review: Acceptable Risk for Surgery and Patient NOT seen in Pre Admission Testing Consults Requested none History Surgery Operation Date: 05/07/21 09:40 Proposed Procedures p L3-L4 Decompression and Fusion, L4-S1 Hardware Removal - Venancio Moise DO Height/Weight Height: 5 ft Weight: 73.5 kg Allergies Allergy/AdvReac Type Severity Reaction Status Date / Time Alliance And Derivatives Allergy Severe EXTREME Verified 05/06/21 11:50 BREATHING DIFFICULTY. shellfish derived Allergy Severe SEAFOOD - Verified 05/06/21 11:50 DIFF BREATHING,HIVES,RASH iodine Allergy Unknown UNKNOWN Verified 05/06/21 11:50 Sulfa (Sulfonamide Allergy Unknown REDNESS/BURNING Verified 05/06/21 11:50 Antibiotics) OF SKIN amoxicillin Allergy Verified 05/06/21 13:25 terconazole [From Terazol 3] Allergy Verified 05/06/21 13:25 Medications Home Medications Medication Instructions Recorded Confirmed Last Taken albuterol sulfate 90 mcg/actuation 2 puffs INH QID 03/26/18 05/06/21 Unknown aerosol inhaler (Ventolin HFA) aspirin 81 mg tablet,delayed 81 mg PO BID 03/26/18 05/06/21 Unknown release (Adult Low Dose Aspirin) diltiazem HCl 120 mg capsule,24 120 mg PO DAILY 06/12/20 05/06/21 Unknown hr,extended release epinephrine 0.3 mg/0.3 mL 0.3 mg IM Q15M PRN 09/18/20 05/06/21 Unknown injection, auto-injector lactobacillus combination no.8 3 3,000 mmu cells PO DAILY 09/18/20 05/06/21 Unknown billion cell capsule (Adult Probiotic) psyllium husk 0.4 gram capsule 0.4 g PO DAILY 09/18/20 05/06/21 Unknown (Daily Fiber) baclofen 10 mg tablet 10 mg PO TID PRN #90 tab 02/15/21 05/06/21 Unknown diclofenac sodium 1 % topical gel 2 g TOP QID PRN #900 g 02/15/21 05/06/21 Unknown bisacodyl 5 mg tablet,delayed 10 mg PO DAILY tab 04/02/21 05/06/21 Unknown release (Dulcolax (bisacodyl)) tapentadol 50 mg tablet (Nucynta) 50 mg PO TID PRN #60 tab MDD 3 tabs 04/30/21 05/06/21 Unknown fluticasone 250 mcg-salmeterol 50 1 inh INHALATION Q12H 05/06/21 05/06/21 Unknown mcg/dose blistr powdr for inhalation (Advair Diskus) fluticasone propionate 50 2 spray INTRANASAL DAILY PRN 05/06/21 05/06/21 Unknown mcg/actuation nasal spray,suspension lifitegrast 5 % eye drops in a 1 drp OPB BID 05/06/21 05/06/21 Unknown dropperette (Xiidra) pregabalin 150 mg capsule (Lyrica) 150 mg PO BID PRN 05/06/21 05/06/21 Unknown prucalopride 2 mg tablet 2 mg PO DAILY 05/07/21 05/07/21 Unknown (Motegrity) Active Medications Generic Name Dose Route Start Last Admin Trade Name Freq PRN Reason Stop Dose Admin Albuterol 2 puffs 05/06/21 19:00 05/07/21 10:18 Albuterol Hfa 8 Gm Inhaler INH 06/05/21 18:59 2 puffs QIDR JOVITA Administration Bisacodyl 10 mg 05/07/21 09:00 05/07/21 07:29 Bisacodyl 5 Mg Tabec PO 06/06/21 08:59 10 mg DAILY JOVITA Administration Diltiazem HCl 120 mg 05/07/21 09:00 05/07/21 07:29 Diltiazem Er 120 Mg Capcr PO 06/06/21 08:59 120 mg DAILY JOVITA Administration Fluticasone/Vilanterol 1 puffs 05/07/21 09:00 05/07/21 07:30 Fluticasone/Vilanterol 200/25mcg 14 Puffs/Inhaler INH 06/06/21 08:59 1 puffs DAILY JOVITA Administration Protocol Miscellaneous 1 ea 05/06/21 16:00 05/07/21 09:22 Order Awaiting Action [Lifitegrast [Xiidra] 5 % Dropperette] N/A 06/05/21 15:59 Not Given QS JOVITA Miscellaneous 1 ea 05/07/21 08:00 05/07/21 09:23 Prucalopride [Motegrity]: Order Awaiting Action N/A 06/06/21 07:59 Not Given QS JOVITA Morphine Sulfate 2 mg 05/06/21 15:41 05/07/21 10:33 Morphine Sulfate 2 Mg/Ml Carp IV 05/20/21 15:40 2 mg Q3H PRN Administration Severe Pain Lifitegrast [Xiidra] 1 ea 05/06/21 21:30 05/07/21 07:31 5 % Dropperette] ~ OP 06/05/21 21:29 1 drops Non-Formulary BID JOVITA Administration Patient's Own Med Pregabalin 150 mg 05/06/21 18:00 05/06/21 17:49 Pregabalin 150 Mg Cap PO 06/05/21 17:59 150 mg HS JOVITA Administration Tapentadol 50 mg 05/06/21 18:00 05/07/21 07:34 Tapentadol Hcl 50 Mg Tab PO 05/20/21 17:59 50 mg TID JOVITA Administration NPO Date Last Intake of Fluids: 05/07/21 Time Last Intake of Fluids: 07:00 Last Intake of Fluids Comment: sip with meds Date Last Intake of Solids: 05/06/21 Time Last Intake of Solids: 19:00 Past Medical History Medical History Asthma Chronic constipation Degenerative joint disease of left midfoot History of breast cancer History of pneumothorax HTN (hypertension), benign Left knee DJD Migraines Neuropathy Obesity Osteoporosis Pes anserinus bursitis of right knee Sjogrens syndrome Spinal stenosis of lumbar region with radiculopathy Thyroid nodule Past Family History Family History Other Family history non-contributory Past Surgical History Surgical History History of appendectomy History of carpal tunnel release of both wrists History of cataract extraction History of cholecystectomy History of lumbar spinal fusion 2015 History of lumpectomy of right breast History of total knee arthroplasty Social History Smoking Status: Never smoker Hx Alcohol Use: Yes Alcohol type: beer alcohol intake frequency: holidays/special occasions only Hx Substance Use: No Physical Exam Vital Signs Last Vital Signs Temp 37.1 C 05/07/21 12:44 Pulse 88 05/07/21 12:44 Resp 20 05/07/21 12:44 BP 140/72 05/07/21 12:44 Pulse Ox 94 05/07/21 12:44 Testing Laboratory Results 05/06/21 11:46 05/06/21 11:46 PT 9.5 Seconds (9.0-12.0) 05/06/21 11:46 INR 0.9 (0.9-1.1) 05/06/21 11:46 Urine Color Yellow 05/06/21 11:55 Urine Appearance Clear (Clear) 05/06/21 11:55 Urine pH 6.0 (4.5-7.5) 05/06/21 11:55 Ur Specific Brackney 1.004 (1.000-1.030) 05/06/21 11:55 Urine Protein Negative (Negative) 05/06/21 11:55 Urine Glucose (UA) Negative (Negative) 05/06/21 11:55 Urine Ketones Negative (Negative) 05/06/21 11:55 Urine Nitrite Negative (Negative) 05/06/21 11:55 Ur Leukocyte Esterase 1+ (Negative) H 05/06/21 11:55 Urine WBC (Auto) 5-10 /hpf (0-5) H 05/06/21 11:55 Urine RBC (Auto) 0-4 /hpf (0-4) 05/06/21 11:55 U Hyaline Cast (Auto) 0 /lpf (0-5) 05/06/21 11:55 U Epithel Cells (Auto) 5-10 /lpf (0-5) H 05/06/21 11:55 Urine Bacteria (Auto) 2+ (Negative) H 05/06/21 11:55 05/06/21 11:55 Urine Culture - Preliminary Urine,Clean Catch Gram negative bacilli Electrocardiogram Date: 05/06/21 DICTATED BY:Eric Barger MD Test Reason : Blood Pressure : / mmHG Vent. Rate : 081 BPM Atrial Rate : 081 BPM P-R Int : 142 ms QRS Dur : 076 ms QT Int : 416 ms P-R-T Axes : 048 011 048 degrees QTc Int : 483 ms Poor data quality, interpretation may be adversely affected Sinus rhythm with Premature atrial complexes Abnormal ECG When compared with ECG of 03-SEP-2012 11:59, Premature atrial complexes are now Present QT has lengthened Confirmed by Eric Barger ([id number]) on 05/06/2021 5:18:43 PM Referred By: REFERRED SELF Confirmed By:Lucas Barger Chest X-Ray Date: 05/06/21 XR chest 1V portable CLINICAL HISTORY: hypoxia,preop. Evaluate cardiopulmonary status COMPARISON STUDY: No previous studies for comparison. TECHNIQUE: 1 view of the chest FINDINGS: Single frontal view of the chest demonstrates the cardiomediastinal silhouette to be within normal limits. There is a decreased inspiratory effort with elevation of the hemidiaphragms and crowding of the bronchovascular markings at the lung bases and centrally. The lungs are clear of alveolar opacities. There is no evidence for pleural effusion. There is no evidence for vascular congest ion. There is no acute osseous pathology. IMPRESSION: There is a decreased inspiratory effort with otherwise no acute chest disease. ACT 112: Negative or not required by law. Echocardiogram Date: 05/06/21 EF: 60-65 Other Findings: + LVH (mild concentric)
[2021-05-07 12:54] LABS: iSTAT Creatinine 0.6 mg/dl (0.6-1.3); iSTAT Hemoglobin 13.9 g/dl (12.0-16.0); iSTAT Ionized Calcium 1.24 mmol/l (1.12-1.32)
--- NOTE | 2021-05-07 13:21 | History & Physical Bridge Note ---
Date of Service May 07, 2021 History & Physical Bridge Note 1I have examined the patient, reviewed the History & Physical and in the interval since the performance of the History & Physical I have noted the following changes of clinical significance: no changes noted Lumbar decompression fusion L3-L4 possible L2-L3 with hardware removal
[2021-05-07] MEDS ORDERED: CLINDAMYCIN 600 MG/54 ML D5W IV ONE (13:25)
[2021-05-07] MEDS ORDERED: PROMETHAZINE HCL 12.5 MG in SODIUM CHLORIDE 0.9% 50 ML IV PRN ×2 (13:31→17:53)
[2021-05-07] MEDS ORDERED: NALOXONE HCL 0.4 MG/1 ML VIAL/CARP IV PRN ×2 (13:31→17:53)
[2021-05-07] MEDS ORDERED: ONDANSETRON INJ 2 MG/ML 2 ML VIAL IV PRN ×2 (13:31→17:53)
[2021-05-07] MEDS ORDERED: LABETALOL HCL IV 5 MG/ML 20ML IV PRN (13:31)
[2021-05-07] MEDS ORDERED: ATROPINE SULFATE 0.1 MG/ML 10ML SYR IV PRN (13:31)
[2021-05-07] MEDS ORDERED: FLUMAZENIL 0.1 MG/1 ML 10 ML VIAL IV PRN (13:31)
[2021-05-07] MEDS ORDERED: ePHEDrine sulfate 50 MG/ML AMP IV PRN (13:31)
[2021-05-07] MEDS ORDERED: SODIUM CHLORIDE 0.9% 250 ML IV PRN (13:35)
[2021-05-07] MEDS ORDERED: fentaNYL citrate 100 MCG/2 ML VIAL ONE (13:39)
[2021-05-07] MEDS ORDERED: EPINEPHrine INJ 1 MG/ML AMP ONE (13:39)
[2021-05-07] MEDS ORDERED: BUPIVACAINE 0.5 % 5 MG/1 ML MPF 30ML VIAL ONE (13:39)
[2021-05-07] MEDS ORDERED: PROPOFOL IV EMULSION 10 MG/ML 20 ML VIAL IV ONE (14:25)
[2021-05-07] MEDS ORDERED: ONDANSETRON INJ 2 MG/ML 2 ML VIAL ONE (14:25)
[2021-05-07] MEDS ORDERED: DEXAMETHASONE SOD INJ 4 MG/ML VIAL ONE (14:25)
[2021-05-07] MEDS ORDERED: LIDOCAINE 2% 2 ML VIAL/AMP(20MG/ML) INFIL ONE (14:25)
[2021-05-07] MEDS ORDERED: ROCURONIUM BROMIDE 10 MG/ML 5 ML VIAL IV ONE (14:25)
[2021-05-07] MEDS ORDERED: HYDROmorphone INJ 2 MG/ML SYR/VIAL ONE (14:41)
[2021-05-07] MEDS ORDERED: FLOSEAL HEMOSTATIC MATRIX 10ML TOP ONE (14:53)
--- NOTE | 2021-05-07 16:01 | Operative Report ---
Post Operative Report Pre & Post Diagnosis Operation Date: 05/07/21 09:40 Pre-Op Diagnosis: Spinal stenosis of lumbar region with radiculopathy Post-Op Diagnosis: Spinal stenosis of lumbar region with radiculopathy I identified the patient and participated in the time-out.: Yes Procedure Operation Date: 05/07/21 09:40 Actual Procedures #1 lumbar decompression with bilateral medial facetectomies and foraminotomies L2-3 L3-L4. #2 posterior spinal fusion L2-L3 L3-L4. #3 placement posterior instrumentation L2-L3 L3-L4. #4 interbody fusion L3-L4. #5 placement peek cage 7 x 22 mm at L3-L4. #6 placement locally harvested morselized autograft in the posterior gutters. #7 placement infuse collagen sponge, and master graft in the posterior lateral gutters and I factor in the interbody space. Surgeon Venancio Moise DO Bss Solution Architect Summer Mcneill Estimated Blood Loss 150 Findings Consistent with Post-Op Diagnosis Specimens None Indications This is a 75-year-old female presents above-mentioned diagnosis and course of nonoperative care having significant progressive decline is here for surgical invention. Description of Procedure Patient was met with identified informed consent obtained. Patient was then taken to the operative suite underwent ablation placed in a prone position the Arnold table top Riley frame. All bony prominences well-padded eyes inspected to ensure no external pressure placed upon the. This point the lumbar spine was prepped and draped in a sterile fashion. Sharp dissection with the assistance of Bovie cautery was performed down to and exposing the lamina and transverse processes of L 2 L3 and instrumentation at L4-L5 and S1 levels bilaterally. And then proceeded move the end caps and rods at the L4 L5-S1 levels. Based on the type of screws placed in amount of blood loss required to remove the screws I elected to maintain the pedicle screws from the previous surgery in position. I then performed a complete laminectomy of L3 and L2 including bilateral medial facetectomies and foraminotomies addressing severe spinal stenosis. Pedicle screws then placed in L2 and L3 bilaterally with assistance of fluoroscopy and appropriate sized abdifatah placed from L2-S1 bilaterally. By way of a transforaminal approach on the right a complete discectomy of L3-L4 was performed endplates curetted to subcortical bleeding bone and a 7 mm peek cage filled with I factor tapped in position. The rods then locked in final position bilaterally. The transverse processes of L2-L3-L4 burred to subcortical bleeding bone. Infuse collagen sponge master graft lobe autograft was placed in the posterior gutters. 15 round GALE drain inserted. The incision was then closed with 1 Vicryl fascia 2-0 Vicryl subcutaneously and 4 Monocryl for final skin closure. Steri-Strip sterile dressings placed. Patient waken to PACU stable condition. Please note spinal cord monitoring was utilized at the procedure no changes noted. Lastly Summer Mcneill was present at the entire surgeon while the patient positioning complex portions of the surgery and fascial closure. I attest to the content of the Intraoperative Record and any orders documented therein. Any exceptions are noted below.
--- NOTE | 2021-05-07 16:38 | Hospitalist Progress Note ---
Date of Service May 07, 2021 Assessment & Plan (1) Spinal stenosis of lumbar region with radiculopathy: Plan: Presents with intractable pain despite numerous interventions as an outpatient Needs admission for pain control and urgent surgical evaluation She recently had an MRI as an outpatient several weeks ago which shows significant spinal stenosis Dr. Moise, s/p lumbar decompression with bilateral medial facetectomies and foraminotomies L2-3 L3-L4. posterior spinal fusion L2-L3 L3-L4. #3 placement posterior instrumentation L2-L3 L3-L4. #4 interbody fusion L3-L4. #5 placement peek cage 7 x 22 mm at L3-L4. return to med/tele, post op orders per Dr. Moise check BMP and CBC in the morning encourage incentive spirometer (2) Asthma: Plan: No hypoxia here, no wheezing on exam Continue home albuterol, Flonase nasal spray, and fluticasone/Vilanterol inhaler once daily (3) HTN (hypertension), benign: Plan: Blood pressures are better today, perhaps BP was up due to pain Continue home diltiazem (4) Osteoporosis: Plan: No acute issues Receives Prolia shots every 6 months (5) History of breast cancer: Plan: In remission No longer uses any maintenance medications (6) Migraines: Plan: Uses [id number] medications for abortive therapy No current issues (7) Neuropathy: Plan: Continue Lyrica 150 mg p.o. at bedtime (8) Chronic constipation: Plan: Worsened in setting of chronic opioid use Continue home Motegrity if available, daily bisacodyl, fiber supplement (9) Sjogrens syndrome: Plan: Continue home eyedrops (10) Hypokalemia: Plan: BMP in the AM (11) Abnormal finding on urinalysis: Plan: Patient has no urinary symptoms There are as many epithelial cells in and WBCs in the urinalysis and the sample may be contaminated Follow urine culture Hold off on antibiotics at this time Leukocytosis on CBC is most likely secondary to recent corticosteroid use as an outpatient Plan: DVT prophylaxis-SCDs Disposition-admit to medical floor telemetry Admission and Anticipated Discharge Date Admission Date: May 06, 2021 Subjective patient seen in the PACU after lumbar decompression admits to being a little sore she is breathing comfortably, no chest pain, no nausea reviewed ortho consult and operative report will move patient back to her room Review of Systems Review of Systems: All systems reviewed & are unremarkable except as noted in Subjective Musculoskeletal: + back pain Physical Exam Physical Exam: General: well developed, well nourished, elderly female, no acute distress, comfortable Neck: supple, trachea midline, normal thyroid Lungs: clear to auscultation bilaterally, normal respiratory effort, no accessory muscle use, no distress Heart: regular S1 and S2, no murmur, peripheral pulses normal, capillary refill normal, no edema Abdomen: soft, NT, ND, + BS, no hepatomegaly, normal to percussion Extremities: normal in appearance, no cyanosis, no petechiae, strength is 5/5 bilaterally, decreased ROM of lumbar spine due to pain/surgery Neuro: awake, cooperative, moves all extremities, no focal motor deficits, CN II-XII intact, sensation in extremities intact, normal speech Skin: warm, dry, no rash, normal turgor Psych: Awake, alert oriented x 3, euthymic affect Results & Data Results & Data ([facility]) Vital Signs (Past 12 Hours) Vital Signs Temp Pulse Pulse Pulse Resp BP Pulse Ox 05/07/21 16:30 67 16 141/81 H 97 05/07/21 16:23 36.2 C L 87 16 149/73 H 97 05/07/21 12:44 37.1 C 88 20 140/72 94 05/07/21 11:36 36.8 C 86 20 120/69 92 05/07/21 10:18 77 16 94 05/07/21 10:02 80 05/07/21 08:13 36.5 C 78 20 120/75 93 05/07/21 08:12 88 22 95 Laboratory Results Laboratory Results - last 24 hr 05/06/21 05/06/21 05/07/21 11:46 11:46 12:39 POC Hgb 13.9 POC Hct 41 POC Sodium 139 POC Potassium 4.0 POC Chloride 103 POC Total CO2 24 POC Anion Gap 17.0 POC BUN 11 POC Creatinine 0.6 POC Glucose (other) 129 H POC Ioniz Calcium Rik 1.24 Hepatitis C Ab Screen Neg Blood Type Blood Type Recheck A Positive Antibody Screen Crossmatch 05/07/21 13:48 POC Hgb POC Hct POC Sodium POC Potassium POC Chloride POC Total CO2 POC Anion Gap POC BUN POC Creatinine POC Glucose (other) POC Ioniz Calcium Rik Hepatitis C Ab Screen Blood Type A Positive Blood Type Recheck Antibody Screen NEGATIVE Crossmatch See Detail Medications Administered Current Inpatient Medications Acetaminophen (Acetaminophen 325 Mg Tab) 650 mg PO Q4H PRN PRN Reason: Pain or Fever Stop: 06/05/21 15:40 Acetaminophen (Acetaminophen 500 Mg Tab) 1,000 mg PO Q8H PRN PRN Reason: MILD Pain Scale 1,2,3 & Pre PT Stop: 06/06/21 17:52 Al Hydrox/Mg Hydrox/Simethicone (Aluminum/Magnesium Susp 30 Ml Udc) 30 ml PO Q6H PRN PRN Reason: Dyspepsia Stop: 06/06/21 17:52 Albuterol (Albuterol Hfa 8 Gm Inhaler) 2 puffs INH QIDR JOVITA Stop: 06/05/21 18:59 Last Admin: 05/07/21 20:10 Dose: 2 puffs Documented by: Atropine Sulfate (Atropine Sulfate 0.1 Mg/Ml 10ml Syr) 0.5 mg IV Q1M PRN PRN Reason: PACU Use-HR<40 &/or Bradycardi Stop: 05/07/21 21:31 Baclofen (Baclofen 10 Mg Tab) 10 mg PO TID PRN PRN Reason: spasms Stop: 06/05/21 15:40 Bisacodyl (Bisacodyl 5 Mg Tabec) 10 mg PO DAILY JOVITA Stop: 06/06/21 08:59 Last Admin: 05/07/21 07:29 Dose: 10 mg Documented by: Bisacodyl (Bisacodyl 10 Mg Supp) 10 mg [place] DAILY PRN PRN Reason: Constipation Stop: 06/06/21 17:52 Diclofenac Sodium (Diclofenac Sod 1% Gel 100 Gm Tube) 2 gm EXT QID PRN PRN Reason: arthritis pain Stop: 06/05/21 15:40 Diltiazem HCl (Diltiazem Er 120 Mg Capcr) 120 mg PO DAILY JOVITA Stop: 06/06/21 08:59 Last Admin: 05/07/21 07:29 Dose: 120 mg Documented by: Diphenhydramine HCl (Diphenhydramine Capsule 25 Mg Cap) 25 mg PO Q6H PRN PRN Reason: Allergic Rhinitis/Insomnia Stop: 06/06/21 17:52 Ephedrine Sulfate (Ephedrine Sulfate 50 Mg/Ml Amp) 5 mg IV Q5M PRN PRN Reason: PACU Use Only-SBP<90 mmHg Stop: 05/07/21 21:31 Famotidine (Famotidine 20 Mg Tab) 20 mg PO Q12H PRN PRN Reason: Dyspepsia Stop: 06/06/21 17:52 Fentanyl Citrate (Fentanyl Citrate 100 Mcg/2 Ml Vial) 25 mcg IV Q5M PRN PRN Reason: PACU Use Only-Pain Stop: 05/07/21 21:31 Last Admin: 05/07/21 16:59 Dose: 25 mcg Documented by: Flumazenil (Flumazenil 0.1 Mg/1 Ml 10 Ml Vial) 0.2 mg IV Q2M PRN PRN Reason: PACU Use Only-Benzo Reversal Stop: 05/07/21 21:31 Fluticasone Propionate (Fluticasone Propionate Na Spr 16 Gm Btl) 2 sprays APRIL DAILY PRN PRN Reason: Nasal Congestion Stop: 06/05/21 15:40 Fluticasone/Vilanterol (Fluticasone/Vilanterol 200/25mcg 14 Puffs/Inhaler) 1 puffs INH DAILY JOVITA; Protocol Stop: 06/06/21 08:59 Last Admin: 05/07/21 07:30 Dose: 1 puffs Documented by: Hydromorphone HCl (Hydromorphone Inj 1 Mg/Ml Syringe) 0.25 mg IV Q5M PRN PRN Reason: PACU Use Only-Pain Stop: 05/07/21 21:31 Last Admin: 05/07/21 17:19 Dose: 0.25 mg Documented by: Hydromorphone HCl (Hydromorphone Inj 0.5 Mg/0.5 Ml Syr) 0.5 mg IV Q3H PRN PRN Reason: MODERATE Pain (Scale 4,5,6) & Pre PT Stop: 05/21/21 17:52 Hydromorphone HCl (Hydromorphone Inj 1 Mg/Ml Syringe) 1 mg IV Q3H PRN PRN Reason: SEVERE Pain (Scale 7,8,9,10) Stop: 05/21/21 17:52 Hydroxyzine HCl (Hydroxyzine Hcl 25 Mg Tab) 25 mg PO Q8H PRN PRN Reason: Anxiety Stop: 06/06/21 17:52 Promethazine HCl 12.5 mg/ (Sodium Chloride) 50.5 mls @ 204 mls/hr IV ONCE PRN PRN Reason: PACU Use Only-Nausea/Vomiting Stop: 05/07/21 21:31 Sodium Chloride (Nss) 250 mls @ 15 mls/hr IV .[id number] PRN PRN Reason: For Transfusion Stop: 05/07/21 23:35 Clindamycin Phosphate 600 mg/ (Dextrose) 54 mls @ 100 mls/hr IV Q8H JOVITA Stop: 05/08/21 06:48 Sodium Chloride (Nss 1000ml) 1,000 mls @ 100 mls/hr IV .Q10H JOVITA Stop: 06/06/21 17:52 Last Admin: 05/07/21 18:22 Dose: 100 mls/hr Documented by: Promethazine HCl 12.5 mg/ (Sodium Chloride) 50.5 mls @ 202 mls/hr IV Q6H PRN PRN Reason: Nausea &/or Vomiting Stop: 06/06/21 17:52 Acetaminophen (Ofirmev) 1,000 mg in 100 mls @ 400 mls/hr IV Q8H PRN PRN Reason: Pain Rating 1-3 & Pre PT Stop: 05/10/21 17:52 Lorazepam (Ativan) 0.5 mg in 1 mls @ 1 mls/min IV Q8H PRN PRN Reason: Sedation/Anxiety Stop: 06/06/21 17:52 Dexamethasone 6 mg/ Syringe 1.5 mls @ 1 mls/min IV DAILY JOVITA Stop: 05/10/21 09:02 Influenza Virus Vaccine Quadrival (Do Not Administer Flu Vaccine) 1 ea N/A PRN PRN PRN Reason: Notification Stop: 06/06/21 17:52 Labetalol HCl (Labetalol Hcl Iv 5 Mg/Ml 20ml) 5 mg IV Q5M PRN PRN Reason: PACU Use-SBP>160 or DBP>100 Stop: 05/07/21 21:31 Lorazepam (Lorazepam 0.5 Mg Tab) 0.5 mg PO Q8H PRN PRN Reason: Sedation/Anxiety Stop: 06/06/21 17:52 Magnesium Hydroxide (Magnesium Hydroxide Susp 30 Ml Udc) 30 ml PO Q24H PRN PRN Reason: Constipation Stop: 06/06/21 17:52 Metoclopramide HCl (Metoclopramide Hcl Inj 5 Mg/Ml 2 Ml Vial) 10 mg IV Q6H PRN PRN Reason: Nausea &/or Vomiting Stop: 06/06/21 17:52 Miscellaneous (Order Awaiting Action [Lifitegrast [Xiidra] 5 % Dropperette]) 1 ea N/A QS JOVITA Stop: 06/05/21 15:59 Last Admin: 05/07/21 16:49 Dose: Not Given Documented by: Miscellaneous (Prucalopride [Motegrity]: Order Awaiting Action) 1 ea N/A QS JOVITA Stop: 06/06/21 07:59 Last Admin: 05/07/21 16:49 Dose: Not Given Documented by: Morphine Sulfate (Morphine Sulfate 2 Mg/Ml Carp) 2 mg IV Q3H PRN PRN Reason: Severe Pain Stop: 05/20/21 15:40 Last Admin: 05/07/21 10:33 Dose: 2 mg Documented by: Naloxone HCl (Naloxone Hcl 0.4 Mg/1 Ml Vial/Carp) 0.2 mg IV Q2M PRN PRN Reason: PACU Use Only-Opiate Reversal Stop: 05/07/21 21:31 Naloxone HCl (Naloxone Hcl 0.4 Mg/1 Ml Vial/Carp) 0.1 mg IV Q5M PRN PRN Reason: Oversedation/Resp depression Stop: 06/06/21 17:52 Lifitegrast [Xiidra] 5 % Dropperette] ~ Non-Formulary Patient's Own Med 1 ea OP BID JOVITA Stop: 06/05/21 21:29 Last Admin: 05/07/21 07:31 Dose: 1 drops Documented by: Ondansetron HCl (Ondansetron Inj 2 Mg/Ml 2 Ml Vial) 4 mg IV Q6H PRN PRN Reason: Nausea Stop: 06/05/21 15:40 Ondansetron HCl (Ondansetron Inj 2 Mg/Ml 2 Ml Vial) 4 mg IV ONCE PRN PRN Reason: PACU Use Only-Nausea/Vomiting Stop: 05/07/21 21:31 Ondansetron HCl (Ondansetron Inj 2 Mg/Ml 2 Ml Vial) 4 mg IV Q6H PRN PRN Reason: Nausea &/or Vomiting Stop: 06/06/21 17:52 Ondansetron HCl (Ondansetron 4 Mg Od Tab) 4 mg PO Q6H PRN PRN Reason: Nausea Stop: 06/06/21 17:52 Oxycodone HCl (Oxycodone Hcl Ir 5 Mg Tab (Immediate Release)) 5 - 10 mg PO Q4H PRN PRN Reason: Pain & Pre PT Stop: 05/21/21 17:52 Pneumococcal Polyvalent Vaccine (Do Not Administer Pneumococcal Vaccine) 1 ea N/A PRN PRN PRN Reason: Notification Stop: 06/06/21 17:52 Polyethylene Glycol (Polyethylene (Miralax) 17 Gm Pack) 17 gm PO DAILY PRN PRN Reason: Constipation Stop: 06/05/21 15:40 Polyethylene Glycol (Polyethylene (Miralax) 17 Gm Pack) 17 gm PO Q6 JOVITA Stop: 06/07/21 05:59 Pregabalin (Pregabalin 150 Mg Cap) 150 mg PO HS JOVITA Stop: 06/05/21 17:59 Last Admin: 05/06/21 17:49 Dose: 150 mg Documented by: Senna/Docusate Sodium (Docusate Sodium/Senna 50/8.6mg Tab) 2 tab PO HS JOVITA Stop: 06/06/21 20:59 Sodium Biphosphate/Sodium Phosphate (Sod Phosphate/Sod Biphosphate Enema 132 Ml Btl) 132 ml [place] ONE PRN PRN Reason: Constipation Stop: 06/06/21 17:52 Tapentadol (Tapentadol Hcl 50 Mg Tab) 50 mg PO TID JOVITA Stop: 05/20/21 17:59 Last Admin: 05/07/21 16:49 Dose: Not Given Documented by: Tramadol HCl (Tramadol Hcl 50 Mg Tablet) 50 - 100 mg PO Q4H PRN PRN Reason: Moderate-Severe pain & Pre PT Stop: 06/06/21 17:52 PG Care Time/CCT Total # of Minutes Spent Total Time Spent with Patient: Total time spent is greater than 50% in coordination of care (as documented) at patient's floor/unit and/or counseling patient: Coding Level of Care Code 23534 Subseq Hosp Care Lvl 2 Diagnoses Spinal stenosis of lumbar region with radiculopathy M48.061; M54.16 Asthma J45.909 HTN (hypertension), benign I10 Osteoporosis M81.0 History of breast cancer Z85.3 Migraines G43.909 Neuropathy G62.9 Chronic constipation K59.09 Sjogrens syndrome M35.00 Hypokalemia E87.6 Abnormal finding on urinalysis R82.90
[2021-05-07] MEDS: fentaNYL citrate 100 MCG/2 ML VIAL IV PRN ×4 (16:44→16:59)
[2021-05-07] MEDS: HYDROmorphone INJ 1 MG/ML SYRINGE IV PRN ×4 (17:04→17:19)
--- NOTE | 2021-05-07 17:07 | Fluoroscopy Report ---
[place] lumbar spine 2-3V CLINICAL HISTORY: L3-4 D/F/I L4-S1 RH COMPARISON STUDY: None FLUOROSCOPY TIME: 17 seconds. FLUOROSCOPIC IMAGES: 2 FINDINGS: AP and lateral spot images demonstrate interpedicular screw and abdifatah fixation from what appe ars to be L2-S1. IMPRESSION: Status post internal fixation. ACT 112: Negative or not required by law. Electronically signed by: Van Baumann M.D. 05/07/2021 5:06 PM
--- NOTE | 2021-05-07 17:34 | Anesthesiology Progress Note ---
Date of Service May 07, 2021 Anesthesia Post Procedure Vital Signs Vital Signs: Temp Pulse Pulse Pulse Resp BP Pulse Ox 05/07/21 17:30 36.7 C 58 L 18 L 15 130/68 98 05/07/21 17:20 71 16 134/78 99 05/07/21 17:10 73 16 128/68 99 05/07/21 17:00 62 16 124/66 100 05/07/21 16:50 68 16 135/70 98 05/07/21 16:40 69 16 141/79 H 98 05/07/21 16:30 67 16 141/81 H 97 05/07/21 16:23 36.2 C L 87 16 149/73 H 97 05/07/21 12:44 37.1 C 88 20 140/72 94 05/07/21 11:36 36.8 C 86 20 120/69 92 05/07/21 10:18 77 16 94 05/07/21 10:02 80 05/07/21 08:13 36.5 C 78 20 120/75 93 05/07/21 08:12 88 22 95 05/07/21 04:31 90 05/07/21 02:48 36.8 C 85 18 153/79 H 96 05/06/21 23:28 36.8 C 92 H 18 150/74 H 96 05/06/21 22:18 107 H 05/06/21 21:25 37.1 C 96 H 18 141/82 H 93 05/06/21 20:10 95 H 20 93 05/06/21 17:50 96 H 23 138/75 93 Pain Intensity Right Leg: Pain Intensity: 10 Back: Pain Intensity: 4 Transfer of Care Handoff Completed per policy Notes Mental Status: alert / awake / arousable Patient Amnestic to Procedure: Yes Nausea / Vomiting: adequately controlled Pain: adequately controlled Airway Patency, RR, SpO2: stable & adequate BP & HR: stable & adequate Hydration State: stable & adequate Anesthetic Complications: no major complications apparent
[2021-05-07] MEDS ORDERED: bisacodyL 10 MG SUPP PR PRN (17:53)
[2021-05-07] MEDS ORDERED: METOCLOPRAMIDE HCL INJ 5 MG/ML 2 ML VIAL IV PRN (17:53)
[2021-05-07] MEDS ORDERED: MAGNESIUM HYDROXIDE SUSP 30 ML UDC PO PRN (17:53)
[2021-05-07] MEDS ORDERED: DO NOT ADMINISTER PNEUMOCOCCAL VACCINE PRN (17:53)
[2021-05-07] MEDS ORDERED: diphenhydrAMINE Capsule 25 MG CAP PO PRN (17:53)
[2021-05-07] MEDS ORDERED: LORazepam 0.5 MG/1 ML VIAL IV PRN (17:53)
[2021-05-07] MEDS ORDERED: ALUMINUM/MAGNESIUM SUSP 30 ML UDC PO PRN (17:53)
[2021-05-07] MEDS ORDERED: SOD PHOSPHATE/SOD BIPHOSPHATE ENEMA 132 ML BTL PR PRN (17:53)
[2021-05-07] MEDS ORDERED: HYDROmorphone INJ 1 MG/ML SYRINGE IV PRN (17:53)
[2021-05-07] MEDS ORDERED: DO NOT ADMINISTER FLU VACCINE PRN (17:53)
[2021-05-07] MEDS ORDERED: FAMOTIDINE 20 MG TAB PO PRN (17:53)
[2021-05-07] MEDS ORDERED: ONDANSETRON 4 MG OD TAB PO PRN (17:53)
[2021-05-07] MEDS ORDERED: ACETAMINOPHEN 1,000 MG/100 ML VIAL IV PRN (17:53)
[2021-05-07] MEDS ORDERED: hydrOXYzine HCl 25 MG TAB PO PRN (17:53)
[2021-05-07] MEDS: SODIUM CHLORIDE 0.9% 1000ML 1,000 ML IV SCH (18:22)
[2021-05-07] MEDS: PREGABALIN 150 MG CAP PO SCH (21:00)
[2021-05-07] MEDS: DOCUSATE SODIUM/SENNA 50/8.6MG TAB PO SCH (21:00)
[2021-05-07] MEDS: CLINDAMYCIN 600 MG in DEXTROSE 5% 50 ML IV SCH (22:49)
[2021-05-08] MEDS: SODIUM CHLORIDE 0.9% 1000ML 1,000 ML IV SCH ×2 (05:51→12:24)
[2021-05-08] MEDS: POLYETHYLENE (MIRALAX) 17 GM PACK PO SCH ×3 (05:57→16:53)
[2021-05-08] MEDS: CLINDAMYCIN 600 MG in DEXTROSE 5% 50 ML IV SCH (05:59)
[2021-05-08] MEDS ORDERED: CLINDAMYCIN 600 MG/54 ML BAG IV SCH (06:00)
[2021-05-08 06:28] LABS: Hematocrit (blood only) 34.4 % (37-47); Hemoglobin 11.1 g/dL (12.0-16.0); Immature Granulocytes # (auto) 0.05 K/uL (0.00-0.02); Immature Granulocytes % (auto) 0.3 %; Lymphocytes # (auto) 0.86 K/uL (1.2-3.4); Lymphocytes % (auto) 4.9 %; Mean Corpuscular Hemoglobin 30.2 pg (25-34); Mean Corpuscular Hgb Conc 32.3 g/dL (32-36); Mean Corpuscular Volume 93.7 fL (80-100); Monocytes % (auto) 6.8 %; Neutrophils # (auto) 15.53 K/uL (1.4-6.5); Platelet Count 202 K/uL (130-400); RDW Coefficient of Variation 14.5 % (11.5-14.5); RDW Standard Deviation 49.6 fL (36.4-46.3); Red Blood Count 3.67 M/uL (4.2-5.4); White Blood Count 17.64 K/uL (4.8-10.8)
[2021-05-08 06:52] LABS: Calcium 8.5 mg/dl (8.5-10.1); Creatinine Clr Calc Pharmacy 82.3 ml/min; Est GFR (African American) 107.1 ml/min; Est GFR (Non-African American) 92.4 ml/min; Potassium 4.1 mmol/L (3.5-5.1)
[2021-05-08] MEDS: ALBUTEROL HFA 8 GM INHALER INH SCH ×3 (07:21→18:31)
[2021-05-08] MEDS: FLUTICASONE/VILANTEROL 200/25MCG 14 PUFFS/INHALER INH SCH (07:58)
[2021-05-08] MEDS: LIFITEGRAST 5% OP SCH ×2 (07:59→22:52)
[2021-05-08] MEDS: bisacodyL 5 MG TABEC PO SCH (08:04)
[2021-05-08] MEDS: TAPENTADOL HCL 50 MG TAB PO SCH ×3 (08:04→22:33)
[2021-05-08] MEDS: dexAMETHasone 6 MG in SYRINGE 0 ML IV SCH (08:08)
--- NOTE | 2021-05-08 08:19 | Hospitalist Progress Note ---
Date of Service May 08, 2021 Assessment & Plan (1) Spinal stenosis of lumbar region with radiculopathy: Plan: Presents with intractable pain despite numerous interventions as an outpatient MRI as an outpatient several weeks ago which shows significant spinal stenosis 05/07/21 Dr. Moise, s/p lumbar decompression with bilateral medial facetectomies and foraminotomies L2-3 L3-L4. posterior spinal fusion L2-L3 L3- L4. #3 placement posterior instrumentation L2-L3 L3-L4. #4 interbody fusion L3-L4. #5 placement peek cage 7 x 22 mm at L3-L4. encourage incentive spirometer (2) Asthma: Plan: Stable No hypoxia , no wheezing on exam Continue home albuterol, Flonase nasal spray, and fluticasone/Vilanterol inhaler once daily (3) HTN (hypertension), benign: Plan: Blood pressures controlled home diltiazem (4) Osteoporosis: Plan: No acute issues Receives Prolia shots every 6 months (5) History of breast cancer: Plan: In remission No longer uses any maintenance medications (6) Migraines: Plan: Uses olqq-nag-fxyctdu medications for abortive therapy No current issues (7) Neuropathy: Plan: Continue Lyrica 150 mg p.o. at bedtime (8) Chronic constipation: Plan: Worsened in setting of chronic opioid use Continue home Motegrity if available, daily bisacodyl, fiber supplement (9) Sjogrens syndrome: Plan: Continue home eyedrops (10) Hypokalemia: Plan: BMP in the AM (11) Abnormal finding on urinalysis: Plan: with new hardware in spine will treat with cipro 250mg bid for 3 days Plan: DVT prophylaxis-SCDs Admission and Anticipated Discharge Date Admission Date: May 06, 2021 Subjective Patient did remarkably well postoperatively she is able to ambulate her pain is much improved Review of Systems Review of Systems: Mild distress and moderate fatigue no headache, no visual changes no speech or swallowing issues no chest pain, pressure or palpitations no shortness of breath, cough or wheezes no abdominal pain, nausea or vomiting, diarrhea or constipation no dysuria, hematuria or frequency Back pain is improved dramatically still minor and only the surgical site with a radicular component Will ambulate short distances with assistive device no bruising, bleeding or rashes no focal signs of weakness no complaints of anxiety or depression.. Physical Exam Physical Exam: The patient appeared well nourished and normally developed. Vital signs as documented. Head exam is normocephalic atraumatic Neck is without JVD, thyromegaly, or carotid bruits. Lungs are clear to auscultation, no focal loss of breath sounds Cardiac exam, Rhythm is regular.. No murmurs, rubs or gallops. Abdominal exam reveals normal bowel sounds, soft non tender, no masses Extremities are nonedematous and both pedal pulses are present Neurologic exam is alert and oriented, x3 Skin is without bruises or rashes with exception of surgical wound which is clean dry and intact Psychologically is without concerns for anxiety or depression.. Results & Data Results & Data ([facility]) Vital Signs (Past 12 Hours) Vital Signs Temp Pulse Pulse Pulse Resp BP Pulse Ox 05/08/21 07:22 18 93 05/08/21 03:28 98.1 F 72 18 136/84 95 05/07/21 23:00 70 05/07/21 22:13 98.1 F 72 18 132/77 96 05/07/21 20:15 72 16 92 PG Care Time/CCT Total # of Minutes Spent Total Time Spent with Patient: Total time spent is greater than 50% in coordination of care (as documented) at patient's floor/unit and/or counseling patient: Coding Level of Care Code 92505 Subseq Hosp Care Lvl 2 Diagnoses Spinal stenosis of lumbar region with radiculopathy M48.061; M54.16 Asthma J45.909 HTN (hypertension), benign I10 Osteoporosis M81.0 History of breast cancer Z85.3 Migraines G43.909 Neuropathy G62.9 Chronic constipation K59.09 Sjogrens syndrome M35.00 Hypokalemia E87.6 Abnormal finding on urinalysis R82.90
--- NOTE | 2021-05-08 08:33 | Orthopedic Progress Note ---
Date of Service May 08, 2021 Assessment & Plan (1) Lumbar radiculopathy: Plan: This time and like to initiate physical therapy occupational therapy. She is requesting consultation for possible rehab placement. This could be as soon as if bed available. Admission and Anticipated Discharge Date Admission Date: May 06, 2021 Subjective Patient's back pain is controlled right leg symptoms are improved. Physical Exam Physical Exam: Patient is in bed. She has ice to the right thigh. She has good strength testing. Appears comfortable. Results & Data ([facility]) Vital Signs (Past 12 Hours) Vital Signs Temp Pulse Pulse Resp BP Pulse Ox 05/08/21 07:22 18 93 05/08/21 03:28 36.7 C 72 18 136/84 95 05/07/21 23:00 70 05/07/21 22:13 36.7 C 72 18 132/77 96
[2021-05-08] MEDS: dilTIAZem ER 120 MG CAPCR PO SCH (09:26)
[2021-05-08] MEDS: CIPROFLOXACIN 250 MG TAB PO SCH ×2 (09:35→22:33)
[2021-05-08] MEDS: DOCUSATE SODIUM/SENNA 50/8.6MG TAB PO SCH (22:33)
[2021-05-08] MEDS: PREGABALIN 150 MG CAP PO SCH (22:33)
[2021-05-09] MEDS: ALBUTEROL HFA 8 GM INHALER INH SCH ×5 (02:27→19:08)
[2021-05-09] MEDS: bisacodyL 5 MG TABEC PO SCH (09:17)
[2021-05-09] MEDS: TAPENTADOL HCL 50 MG TAB PO SCH ×3 (09:17→21:02)
[2021-05-09] MEDS: CIPROFLOXACIN 250 MG TAB PO SCH ×2 (09:20→21:02)
[2021-05-09] MEDS: traMADol HCL 50 MG TABLET PO PRN (09:20)
[2021-05-09] MEDS: FLUTICASONE/VILANTEROL 200/25MCG 14 PUFFS/INHALER INH SCH (09:21)
[2021-05-09] MEDS: LIFITEGRAST 5% OP SCH ×2 (09:21→21:05)
[2021-05-09] MEDS: dilTIAZem ER 120 MG CAPCR PO SCH (09:21)
[2021-05-09] MEDS: dexAMETHasone 6 MG in SYRINGE 0 ML IV SCH (11:03)
--- NOTE | 2021-05-09 13:21 | Orthopedic Progress Note ---
Date of Service May 09, 2021 Assessment & Plan (1) Spinal stenosis of lumbar region with radiculopathy: Plan: This time we will continue physical therapy assess her GALE output hopefully discharge to rehab tomorrow. Admission and Anticipated Discharge Date Admission Date: May 06, 2021 Subjective Patient's back pain is controlled but sore. Her right leg symptoms improved. Physical Exam Physical Exam: Patient is in the chair at the bedside. Is good strength to testing. Results & Data ([facility]) Vital Signs (Past 12 Hours) Vital Signs Temp Pulse Pulse Resp BP Pulse Ox 05/09/21 10:41 77 20 95 05/09/21 06:13 36.9 C 84 16 132/71 94
[2021-05-09] MEDS: oxyCODONE HCL IR 5 MG TAB (IMMEDIATE RELEASE) PO PRN (15:54)
[2021-05-09] MEDS: LORazepam 0.5 MG TAB PO PRN (16:32)
[2021-05-09] MEDS: ACETAMINOPHEN 500 MG TAB PO PRN (16:32)
[2021-05-09] MEDS: HYDROmorphone INJ 0.5 MG/0.5 ML SYR IV PRN ×2 (17:06→23:56)
--- NOTE | 2021-05-09 20:36 | Hospitalist Progress Note ---
Date of Service May 09, 2021 Assessment & Plan (1) Spinal stenosis of lumbar region with radiculopathy: Plan: Presents with intractable pain despite numerous interventions as an outpatient MRI as an outpatient several weeks ago which shows significant spinal stenosis 05/07/21 Dr. Moise, s/p lumbar decompression with bilateral medial facetectomies and foraminotomies L2-3 L3-L4. posterior spinal fusion L2-L3 L3- L4. #3 placement posterior instrumentation L2-L3 L3-L4. #4 interbody fusion L3-L4. #5 placement peek cage 7 x 22 mm at L3-L4. encourage incentive spirometer (2) Asthma: Plan: Stable No hypoxia , no wheezing on exam Continue home albuterol, Flonase nasal spray, and fluticasone/Vilanterol inhaler once daily (3) HTN (hypertension), benign: Plan: Blood pressures controlled home diltiazem (4) Osteoporosis: Plan: No acute issues Receives Prolia shots every 6 months (5) History of breast cancer: Plan: In remission No longer uses any maintenance medications (6) Migraines: Plan: Uses wgvs-htg-eajsowh medications for abortive therapy No current issues (7) Neuropathy: Plan: Continue Lyrica 150 mg p.o. at bedtime (8) Chronic constipation: Plan: Worsened in setting of chronic opioid use Continue home Motegrity if available, daily bisacodyl, fiber supplement (9) Sjogrens syndrome: Plan: Continue home eyedrops (10) Hypokalemia: Plan: BMP in the AM (11) Abnormal finding on urinalysis: Plan: with new hardware in spine will treat with cipro 250mg bid for 3 days (12) Acute blood loss anemia: Plan: DVT prophylaxis-SCDs Admission and Anticipated Discharge Date Admission Date: May 06, 2021 Subjective pt states she is still with some pain but no radicular pain Review of Systems Review of Systems: Mild distress and moderate fatigue no headache, no visual changes no speech or swallowing issues no chest pain, pressure or palpitations no shortness of breath, cough or wheezes no abdominal pain, nausea or vomiting, diarrhea or constipation no dysuria, hematuria or frequency Back pain is improved dramatically still minor and only the surgical site withou t a radicular component Will ambulate short distances with assistive device no bruising, bleeding or rashes no focal signs of weakness no complaints of anxiety or depression.. Physical Exam Physical Exam: The patient appeared well nourished and normally developed. Vital signs as documented. Head exam is normocephalic atraumatic Neck is without JVD, thyromegaly, or carotid bruits. Lungs are clear to auscultation, no focal loss of breath sounds Cardiac exam, Rhythm is regular.. No murmurs, rubs or gallops. Abdominal exam reveals normal bowel sounds, soft non tender, no masses Extremities are nonedematous and both pedal pulses are present Neurologic exam is alert and oriented, x3 Skin is without bruises or rashes with exception of surgical wound which is clean dry and intact Psychologically is without concerns for anxiety or depression.. Results & Data Results & Data ([facility]) Vital Signs (Past 12 Hours) Vital Signs Temp Pulse Pulse Resp BP Pulse Ox 05/09/21 19:09 71 16 97 05/09/21 15:29 98.8 F 79 18 128/75 93 05/09/21 15:07 67 14 96 05/09/21 10:41 77 20 95 PG Care Time/CCT Total # of Minutes Spent Total Time Spent with Patient: Total time spent is greater than 50% in coordination of care (as documented) at patient's floor/unit and/or counseling patient: Coding Level of Care Code 59447 Subseq Hosp Care Lvl 2 Diagnoses Spinal stenosis of lumbar region with radiculopathy M48.061; M54.16 Asthma J45.909 HTN (hypertension), benign I10 Osteoporosis M81.0 History of breast cancer Z85.3 Migraines G43.909 Neuropathy G62.9 Chronic constipation K59.09 Sjogrens syndrome M35.00 Hypokalemia E87.6 Abnormal finding on urinalysis R82.90 Acute blood loss anemia D62
[2021-05-09] MEDS: PREGABALIN 150 MG CAP PO SCH (21:02)
[2021-05-09] MEDS: DOCUSATE SODIUM/SENNA 50/8.6MG TAB PO SCH (21:02)
[2021-05-10] MEDS: ACETAMINOPHEN 500 MG TAB PO PRN (00:06)
[2021-05-10] MEDS: LORazepam 0.5 MG TAB PO PRN (00:06)
[2021-05-10] MEDS: oxyCODONE HCL IR 5 MG TAB (IMMEDIATE RELEASE) PO PRN ×2 (05:37→14:43)
[2021-05-10] MEDS: HYDROmorphone INJ 0.5 MG/0.5 ML SYR IV PRN (05:38)
[2021-05-10] MEDS: ALBUTEROL HFA 8 GM INHALER INH SCH ×3 (07:15→15:01)
[2021-05-10] MEDS: traMADol HCL 50 MG TABLET PO PRN (07:44)
[2021-05-10] MEDS: bisacodyL 5 MG TABEC PO SCH (07:44)
[2021-05-10] MEDS: dexAMETHasone 6 MG in SYRINGE 0 ML IV SCH (07:45)
[2021-05-10] MEDS: CIPROFLOXACIN 250 MG TAB PO SCH (07:45)
[2021-05-10] MEDS: LIFITEGRAST 5% OP SCH (07:45)
[2021-05-10] MEDS: FLUTICASONE/VILANTEROL 200/25MCG 14 PUFFS/INHALER INH SCH (07:45)
[2021-05-10] MEDS: dilTIAZem ER 120 MG CAPCR PO SCH (07:45)
[2021-05-10] MEDS: TAPENTADOL HCL 50 MG TAB PO SCH ×2 (07:50→14:44)
[2021-05-10] MEDS ORDERED: Nursing to Pharmacy Communication SCH (08:15)
[2021-05-10] MEDS ORDERED: bisacodyL 10 MG SUPP PR ONE (11:02)
--- NOTE | 2021-05-10 20:09 | Discharge Summary ---
Date of Service May 10, 2021 Principal Diagnosis Intractable low back pain status post decompression fusion L2-3 and 4 Discharge Exam The patient appeared well nourished and normally developed. Vital signs as documented. Head exam is normocephalic atraumatic Neck is without JVD, thyromegaly, or carotid bruits. Lungs are clear to auscultation, no focal loss of breath sounds Cardiac exam, Rhythm is regular.. No murmurs, rubs or gallops. Abdominal exam reveals normal bowel sounds, soft non tender, no masses Extremities are nonedematous and both pedal pulses are present Neurologic exam is alert and oriented, no focal loss of strength or sensation Skin is without bruises or rashes Psychologically is without concerns for anxiety or depression.. Discharge Data Allergies Allergy/AdvReac Type Severity Reaction Status Date / Time [place] And Derivatives Allergy Severe EXTREME Verified 05/06/21 11:50 BREATHING DIFFICULTY. grapefruit Allergy Severe Difficulty Verified 05/08/21 09:27 Breathing orange Allergy Severe Difficulty Verified 05/08/21 09:27 Breathing shellfish derived Allergy Severe SEAFOOD - Verified 05/06/21 11:50 DIFF BREATHING,HIVES,RASH iodine Allergy Unknown UNKNOWN Verified 05/06/21 11:50 Sulfa (Sulfonamide Allergy Unknown REDNESS/BURNING Verified 05/06/21 11:50 Antibiotics) OF SKIN amoxicillin Allergy Verified 05/06/21 13:25 terconazole [From Terazol 3] Allergy Verified 05/06/21 13:25 Consultations 05/06/21 12:31 Consult Orthopedic Surgery Stat ED Decision to Admit Stat Procedures Performed Operation Date: 05/07/21 09:40 Actual Procedures p L2-L3, L3-L4 Decompression and Fusion, Interbody Cage L3-L4, Bone Morphogenetic Protein, Spinal Cord Monitoring - Venancio Moise, DO Ordered Studies 05/07/21 [place] lumbar spine 2-3V Routine Hospital Course (1) Spinal stenosis of lumbar region with radiculopathy: Presents with intractable pain despite numerous interventions as an outpatient MRI as an outpatient several weeks ago which shows significant spinal stenosis 05/07/21 Dr. Moise, s/p lumbar decompression with bilateral medial facetectomies and foraminotomies L2-3 L3-L4. posterior spinal fusion L2-L3 L3- L4. #3 placement posterior instrumentation L2-L3 L3-L4. #4 interbody fusion L3-L4. #5 placement peek cage 7 x 22 mm at L3-L4. (2) Asthma: Stable No hypoxia , no wheezing on exam Continue home albuterol, Flonase nasal spray, and fluticasone/Vilanterol inhaler once daily (3) HTN (hypertension), benign: Blood pressures controlled home diltiazem (4) Osteoporosis: No acute issues Receives Prolia shots every 6 months (5) History of breast cancer: In remission No longer uses any maintenance medications (6) Migraines: Uses jdrl-uhl-rokecis medications for abortive therapy No current issues (7) Neuropathy: Continue Lyrica 150 mg p.o. at bedtime (8) Chronic constipation: Worsened in setting of chronic opioid use Continue home Motegrity if available, daily bisacodyl, fiber supplement (9) Sjogrens syndrome: Continue home eyedrops (10) Hypokalemia: Resolved (11) Acute blood loss anemia: DVT prophylaxis-SCDs Total Time Total Time Spent Total Time Spent (In Minutes): It required greater than 30 minutes to prepare this patient for discharge Discharge Plan Discharge Items Patient Disposition: Transfer Inpatient Rehab Fac Reason For Visit: LUMBAR RADICULOPATHY Discharge Diagnosis: Lumbar spinal stenosis with radiculopathy Activity: As commented below Non-emergency contact: Primary Care Provider Call non-emergency contact if: your symptoms worsen and you have a fever Follow-up/Referrals: Norah Cast D.O. [Primary Care Provider] - Diet: Regular Addtl Attending Provider Instructions: ACTIVITY RECOMMENDATIONS: SELF CARE INSTRUCTIONS AFTER THORACIC/LUMBAR FUSIONS 1. You may walk to your tolerance. It is good exercise for your legs and back. Expect some back and intermittent leg aches and pains. 2. You may perform "counter-top" level activities (make a sandwich, elliott with a project, etc.). 3. No bending or lifting of more than 10 pounds or back twisting of any nature (roll like a log when turning in bed). 4. You may ride in a car for 20-30 minutes at a time. No driving until after your first visit with your doctor. 5. Frequent changes of position and restricting sitting to 30 minutes at a time will help limit the amount of back spasms and stiffness you may experience. 6. You may discontinue the use of ambulatory aids (cane, crutches, etc.) once your strength and confidence allow. 7. You may pharmacy clinical specialist the shower and let water strike your incision when you arrive home at least once daily. Do not take a tub bath, sit in a hot tub or go into a swimming pool until after your first recheck in the office. SPECIAL CARE INSTRUCTIONS: VERY IMPORTANT TO READ AND REVIEW A. Your surgical incision has been closed with a cosmetic suture under the skin that will dissolve in about 6 weeks. In 14 days, you can use a pair of clean scissors and cut the suture that is left outside of the skin at the ends of your incision. 1. The small skin tapes can be removed 7 days after surgery if they have not fallen off by that point. 2. You may keep the wound open to air as much as possible to promote healing after post-op day number 5 unless told otherwise by your doctor. 3. If you think the wound looks like it is becoming infected (redness or worsening drainage) and/or you are experiencing fever, chill or worsening back pain and muscle spasms, contact the office so that we may evaluate you as soon as possible. B. Complications are uncommon, but please contact us if you have any signs or symptoms of: 1. wound infection (fever higher than 102.5 degrees F, redness, separation of wound, drainage, or increasing pain from the incision) 2. blood clots in legs (pain, swelling, redness and warmth in legs) 3. urinary tract infection (fever higher than 102.5 degrees F, burning upon urination or increased frequency of urination) 4. nerve problems (inability to walk on your toes or heels, numbness, loss of bowel or bladder control) 5. any other symptoms that concern you C. Please call the office at if you have any concerns or questions about your operation or recovery. D. No smoking! Smoking drastically decreases the chance of a solid fusion. E. Do not take any anti-inflammatory medications (Indocin, Advil, Motrin, Aspirin, Naprosyn, etc.) as these may inhibit the chance of a solid fusion. Tylenol is okay to take for pain. MANAGING PAIN AFTER SPINAL SURGERY 1. Narcotic medication is intended for short-term use and will be provided for surgical pain. Surgical pain usually lasts for a period of 4-6 weeks. Narcotic medication includes Percocet, Vicodin, Darvocet, Tylenol #3 or Lortab. 2. Longer-term pain is more appropriately treated with non-narcotic medication such as Tylenol ES. 3. Muscle spasm is not appropriately treated with narcotics. Muscle relaxers such as Soma, Flexeril or Skelaxin can be used along with Tylenol ES. 4. Remember that we all live with some "aches and pains". This is not unusual or uncommon after an injury or as we get older. a. Back pain is expected and may include muscle spasms for 4 to 6 weeks after surgery. The pain should gradually improve. If the pain worsens for no apparent reason, please contact the office. b. Intermittent leg pain may also be experienced and should not be concerned about unless it worsens for no apparent reason. If so, please contact the office. 5. We will provide appropriate medication within the normal guidelines of their prescribed use. We will also be very cautious and aware of potential abuse and extended duration of patients' medication needs. a. Pain medications are for your comfort and to assist with sleep and rest so that the tissue can heal. They are not provided in order to return to normal activity and should not be used through the day. To do so or worsening pain at night can result from ongoing tissue damage and development of tolerance to the prescribed medicine. 6. Please allow 2-3 days to process refills. Prescriptions will not be mailed but must be picked up at the office. FOLLOW UP VISIT: Keep your scheduled follow-up appointment. Any questions, please call the office at . Pending Studies at Discharge: No Stand-Alone Forms: [facility] Skilled Items Patient informed of condition?: Yes DNR: No Discharge Level of Care: Acute rehab Communicable Disease: No Discharge Prognosis: Stable Lines: None Urinary Catheter: No Medications and DC Order Prescriptions: Continued aspirin [Adult Low Dose Aspirin] 81 mg tablet,delayed release (DR/EC) 81 mg PO BID RF: 0 albuterol sulfate [Ventolin HFA] 90 mcg/actuation HFA aerosol inhaler 2 puffs INH QID RF: 0 diltiazem HCl 120 mg capsule,extended release 24 hr 120 mg PO DAILY RF: 0 epinephrine 0.3 mg/0.3 mL auto-injector 0.3 mg IM Q15M PRN (Reason: Allergic Reaction) RF: 0 psyllium husk [Daily Fiber] 0.4 gram capsule 0.4 g PO DAILY RF: 0 Adult Probiotic 3 billion cell capsule 3,000 mmu cells PO DAILY RF: 0 Nucynta 50 mg tablet 50 mg PO TID MDD 3 tabs PRN (Reason: pain) Qty: 60 RF: 0 bisacodyl [Dulcolax (bisacodyl)] 5 mg tablet,delayed release (DR/EC) 10 mg PO DAILY RF: 0 baclofen 10 mg tablet 10 mg PO TID PRN (Reason: spasms) Qty: 90 RF: 0 diclofenac sodium 1 % gel 2 g TOP QID PRN (Reason: djd) Qty: 900 RF: 1 fluticasone propion-salmeterol [Advair Diskus] 250-50 mcg/dose Blister With Device 1 inh INHALATION Q12H RF: 0 Xiidra 5 % dropperette 1 drp OPB BID RF: 0 fluticasone propionate 50 mcg/actuation [place],Suspension 2 spray INTRANASAL DAILY PRN (Reason: Nasal Congestion) RF: 0 pregabalin [Lyrica] 150 mg Capsule 150 mg PO BID PRN (Reason: Pain) RF: 0 Motegrity 2 mg tablet 2 mg PO DAILY RF: 0 Discharge Orders: Discharge Order (Routine); Ordered 05/10/21 Ordered By: Corky Littlejohn Admission Data Admit Date/Time: 05/06/21 13:17 Attending Provider: Corky Littlejohn Admit Provider: Genna Aquino Primary Care Provider: Norah Cast Other Providers: Venancio Moise ; Genna Aquino Coding Level of Care Code D/C DAY MANAGEMENT >30 MINS Diagnoses Spinal stenosis of lumbar region with radiculopathy M48.061; M54.16 Asthma J45.909 HTN (hypertension), benign I10 Osteoporosis M81.0 History of breast cancer Z85.3 Migraines G43.909 Neuropathy G62.9 Chronic constipation K59.09 Sjogrens syndrome M35.00 Hypokalemia E87.6 Acute blood loss anemia D62
== END 2021-05-10 15:27 | DRG 454 ==
LOC: ED 09:43 → SUATTDRO 13:17 → EDINP 13:17 → 2W 20:03 → 3N 05-09 01:37

== ENCOUNTER 2022-07-31 04:57 | Inpatient (IN) ==
--- NOTE | 2022-05-31 11:10 | PAT Medication Instructions ---
Medication Instructions Date of Service May 31, 2022 Home Medications Medication Instructions Recorded baclofen 10 mg tablet 10 mg PO TID PRN spasms #90 tabs 01/21/22 diclofenac sodium 1 % topical gel 2 g topical QID PRN djd #900 grams 01/21/22 tapentadol 50 mg tablet (Nucynta) 50 mg PO TID PRN pain #60 tabs 05/20/22 albuterol sulfate 90 mcg/actuation aerosol inhaler (Ventolin HFA) 2 puffs inhalation QID PRN aspirin 81 mg tablet,delayed release (Adult Low Dose Aspirin) 81 mg PO BID diltiazem HCl 120 mg capsule,24 hr,extended release 120 mg PO QAM epinephrine 0.3 mg/0.3 mL injection, auto-injector 0.3 mg IM Q15M PRN bisacodyl 5 mg tablet,delayed release (Dulcolax (bisacodyl)) 10 mg PO BID fluticasone 250 mcg-salmeterol 50 mcg/dose blistr powdr for inhalation (Advair Diskus) 1 inh inhalation Q12H PRN fluticasone propionate 50 mcg/actuation nasal spray,suspension 2 spray intranasal DAILY PRN lifitegrast 5 % eye drops in a dropperette (Xiidra) 1 drp OPB BID baclofen 10 mg tablet 10 mg PO TID PRN diclofenac sodium 1 % topical gel 2 g topical QID PRN lubiprostone 24 mcg capsule 24 mcg PO BID tapentadol 50 mg tablet (Nucynta) 50 mg PO TID PRN pregabalin 200 mg capsule (Lyrica) 200 mg PO TID Continue as directed epinephrine 0.3 mg/0.3 mL injection, auto-injector 0.3 mg IM Q15M PRN(if needed) ASK your surgeon for instructions diclofenac sodium 1 % topical gel 2 g topical QID PRN DO NOT take the morning of surgery bisacodyl 5 mg tablet,delayed release (Dulcolax (bisacodyl)) 10 mg PO BID baclofen 10 mg tablet 10 mg PO TID PRN lubiprostone 24 mcg capsule 24 mcg PO BID Take morning of surgery With a small sip of water, OTHERWISE NOTHING TO EAT OR DRINK AFTER MIDNIGHT: albuterol sulfate 90 mcg/actuation aerosol inhaler (Ventolin HFA) 2 puffs inhalation QID PRN(use if needed; please bring with you to hospital day of surgery if possible) aspirin 81 mg tablet,delayed release (Adult Low Dose Aspirin) 81 mg PO BID (unless directed otherwise by surgeon) diltiazem HCl 120 mg capsule,24 hr,extended release 120 mg PO QAM fluticasone 250 mcg-salmeterol 50 mcg/dose blistr powdr for inhalation (Advair Diskus) 1 inh inhalation Q12H PRN(if needed) fluticasone propionate 50 mcg/actuation nasal spray,suspension 2 spray intranasal DAILY PRN(if needed) lifitegrast 5 % eye drops in a dropperette (Xiidra) 1 drp OPB BID tapentadol 50 mg tablet (Nucynta) 50 mg PO TID PRN(if needed) pregabalin 200 mg capsule (Lyrica) 200 mg PO TID Take evening before surgery albuterol sulfate 90 mcg/actuation aerosol inhaler (Ventolin HFA) 2 puffs inhalation QID PRN(if needed) aspirin 81 mg tablet,delayed release (Adult Low Dose Aspirin) 81 mg PO BID (unless directed otherwise by surgeon) bisacodyl 5 mg tablet,delayed release (Dulcolax (bisacodyl)) 10 mg PO BID fluticasone 250 mcg-salmeterol 50 mcg/dose blistr powdr for inhalation (Advair Diskus) 1 inh inhalation Q12H PRN(if needed) lifitegrast 5 % eye drops in a dropperette (Xiidra) 1 drp OPB BID baclofen 10 mg tablet 10 mg PO TID PRN(if needed) lubiprostone 24 mcg capsule 24 mcg PO BID tapentadol 50 mg tablet (Nucynta) 50 mg PO TID PRN(if needed) pregabalin 200 mg capsule (Lyrica) 200 mg PO TID Other Notes If you have any questions please call us at [phone] or [phone] or [phone] or [phone]
--- NOTE | 2022-06-06 12:02 | Anesthesiology Consultation ---
Date of Service June 06, 2022 Assessment & Plan (1) Encounter for pre-operative examination: - COVID screening: Per assessment on 06/06: No known COVID-19 positive contacts or current COVID-19 related symptoms. Travel screen negative. At surgeon discretion if preop Covid testing being done. - Outpatient joint assessment: Pt currently scheduled for inpatient pathway. If surgeon requests review for outpatient joint pathway, patient is not recommended candidate for outpatient joint program from anesthesia standpoint. - RUE limb restriction s/p lumpectomy - Abnormal EKG: ST depressions on 04/2022 EKG. Per patient, PCP-ordered Echo for further evaluation of EKG changes. Awaiting Echo report (06/10/22; [facility]) as well as most recent PCP office visit note (Dr. Norah Cast). Chart Review Chart Review: Patient seen in Pre Admission Testing Teaching & Discussion Pre-Anesthesia Teaching/Discussion Notes: Instructed NPO after midnight before surgery,except medications with 15 cc of water. Medication instructions provided according to the PAT guidelines. History Surgery Operation Date: 07/09/22 08:50 Proposed Procedures p Right Total Hip Arthroplasty - Paul Lira MD Height/Weight Height: 5 ft Weight: 78.1 kg Allergies Allergy/AdvReac Type Severity Reaction Status Date / Time [place] And Derivatives Allergy Severe Extreme Verified 06/05/22 16:25 difficulty breathing grapefruit Allergy Severe Difficulty Verified 05/31/22 08:33 Breathing iodine Allergy Severe Difficulty Verified 06/05/22 16:25 breathing, swelling orange Allergy Severe Difficulty Verified 05/31/22 08:33 Breathing shellfish derived Allergy Severe Seafood- Verified 06/05/22 16:25 difficulty breathing, hives, rash Sulfa (Sulfonamide Allergy Intermediate Redness, Verified 06/05/22 16:25 Antibiotics) burning of skin terconazole [From Terazol 3] Allergy Intermediate Swelling Verified 06/05/22 16:25 at site amoxicillin Allergy Unknown Unknown Verified 05/31/22 08:33 Medications Home Medications Medication Instructions Recorded Confirmed Last Taken albuterol sulfate 90 mcg/actuation 2 puffs inhalation QID PRN 03/26/18 05/31/22 Unknown aerosol inhaler (Ventolin HFA) Shortness Of Breath aspirin 81 mg tablet,delayed 81 mg PO BID 03/26/18 05/31/22 Unknown release (Adult Low Dose Aspirin) diltiazem HCl 120 mg capsule,24 120 mg PO QAM 06/12/20 05/31/22 Unknown hr,extended release epinephrine 0.3 mg/0.3 mL 0.3 mg IM Q15M PRN Allergic 09/18/20 05/31/22 Unknown injection, auto-injector Reaction bisacodyl 5 mg tablet,delayed 10 mg PO BID 04/02/21 05/31/22 Unknown release (Dulcolax (bisacodyl)) fluticasone 250 mcg-salmeterol 50 1 inh inhalation Q12H PRN 05/06/21 05/31/22 Unknown mcg/dose blistr powdr for Shortness Of Breath inhalation (Advair Diskus) fluticasone propionate 50 2 spray intranasal DAILY PRN Nasal 05/06/21 05/31/22 Unknown mcg/actuation nasal Congestion spray,suspension lifitegrast 5 % eye drops in a 1 drp OPB BID 05/06/21 05/31/22 Unknown dropperette (Xiidra) baclofen 10 mg tablet 10 mg PO TID PRN spasms #90 tabs 01/21/22 05/31/22 Unknown diclofenac sodium 1 % topical gel 2 g topical QID PRN djd #900 grams 01/21/22 05/31/22 Unknown lubiprostone 24 mcg capsule 24 mcg PO BID 01/21/22 05/31/22 Unknown tapentadol 50 mg tablet (Nucynta) 50 mg PO TID PRN pain #60 tabs 05/20/22 05/31/22 Unknown pregabalin 200 mg capsule (Lyrica) 200 mg PO TID 05/31/22 05/31/22 Unknown Past Medical History Medical History Asthma Stable Cervical spinal stenosis Chronic constipation Chronic pain of left knee Degenerative joint disease of left midfoot History of breast cancer Right breast diagnosed 2009 s/p lumpectomy/radiation History of pneumothorax 1995- spontaneous, had chest tube > resolved, no issues since HTN (hypertension), benign Left knee DJD Migraines Neuropathy Feet Obesity Osteoporosis Paresthesia of hand, bilateral Sjogrens syndrome Spinal stenosis of lumbar region with radiculopathy Thyroid nodule Exercise / Class Metabolic Activity III < 4 Walking/Shop/Light housework Past Family History Family History Other Family history non-contributory No family history of adverse response to anesthesia Past Surgical History Surgical History History of appendectomy History of bilateral tubal ligation History of carpal tunnel release of both wrists History of cataract extraction R/L History of chest tube placement 1995 for pneumothorax History of cholecystectomy History of colonoscopy History of esophagogastroduodenoscopy (EGD) History of lumbar spinal fusion x2-- Lumbar fusion (05/07/21): Grade 1 view, MAC#3 at [facility]. No issues noted per post-op anesthesia progress note. History of lumpectomy of left breast benign lump removed History of lumpectomy of right breast History of right breast biopsy malignant History of tooth extraction all top teeth removed History of total knee arthroplasty right History of wisdom tooth extraction Status post trigger finger release Past Anesthesia History No Hx of Anesthesia Complications and No Family Hx of Anesthesia Complications History of PONV No Hx of PONV and No Hx of Motion Sickness Social History Smoking Status: Never smoker Do You Dip or Chew Tobacco: No Hx Alcohol Use: Yes Alcohol type: beer alcohol intake frequency: holidays/special occasions only Hx Substance Use: No substance use type: does not use Review of Systems Patient denies chest pain, shortness of breath, fever, chills, cough, wheezing, palpitations. Physical Exam Vital Signs VITALS BP 125/68 P 66 TEMP 98.4 SP02 95%RA RESP 18 PHYSICAL Full cervical extension range of motion. Full TMJ range of motion. TMD 3 finger breaths Mallampati Score 3 Dentition: full upper plate, several missing on lower Lungs: clear throughout to auscultation Cardiac: regular rate and rhythm, no murmurs noted Spine: normal Carotid arteries: negative bruit Extremities: no edema Lab Results Anesthesia Preop Results Results Anesthesia Widget: WBC 8.29 K/ul (4.8-10.8) 06/06/22 Hgb 12.2 g/dl (12.0-16.0) 06/06/22 Hct 35.9 % (34.1-44.9) 06/06/22 Plt 251 K/uL (130-400) 06/06/22 Na 135 mmol/L (136-145) L 06/06/22 K 3.8 mmol/L (3.5-5.1) 06/06/22 Cl 103 mmol/L (98-107) 06/06/22 CO2 25 mmol/L (21-32) 06/06/22 BUN 8 mg/dl (6-23) 06/06/22 Creat 0.49 mg/dl (0.6-1.2) L 06/06/22 Glucose Level 92 mg/dl (70-99(Fasting)) 06/06/22 PT 10.4 Seconds (9.0-12.0) 06/06/22 PTT 25.6 Seconds (21.0-31.0) 06/06/22 INR 1.0 (0.9-1.1) 06/06/22 Blood Type A Positive 06/06/22 Antibody Screen NEGATIVE 06/06/22 Testing Electrocardiogram Date: 04/30/22 SR at 89bpm. Minimal ST depression. Echo ordered by PCP for further evaluation 06/2022. Chest X-Ray Date: 04/30/22 Moderate scoliosis with degenerative disease throughout the thoracic spine. Stable appearance, without acute disease seen at this time. Echocardiogram Date: 05/06/21 EF: 60-65 Mild cLVH. No RWMA. No significant valvular disease. COVID-19 Risk Screen Screening Information COVID-19 Screen Date: 06/06/22 Exposure 21 Days Family/Household +COVID Last 21 Days: No Exposure 10 Days Any COVID Exposure Last 10 Days: No Symptoms Last 10 Days Experienced COVID Sx Last 10 Days: No + COVID 0-90 Days COVID + in Last 0-90 Days: No
--- NOTE | 2022-07-06 11:47 | History and Physical Report ---
CHIEF COMPLAINT: Right hip pain. HISTORY OF PRESENT ILLNESS: The patient is a 77-year-old female well known to me from treating multi ple orthopedic issues over the years. She has got a long history of hip and back pain. I did a righ t knee replacement on her about 9 years ago and she has done pretty well from this. Over the past a year or so, she developed increased pain and discomfort in her right hip, buttock leg area. She has been through a relatively recent spine surgery about a year ago. This helped her somewhat with her b ack issues. She continues to be limited by right hip and leg and thigh pain. She is having trouble walking any significant distance. X-rays show progressive hip arthritis. She would like to have her hip fixed. PAST MEDICAL HISTORY: 1. Angina/chest pain with a pretty negative workup. 2. Hypertension. 3. Asthma. 4. Gastroesophageal reflux disease. 5. Mild obesity with a BMI of 34. 6. Spinal arthritis, status post surgery a year ago. PAST SURGICAL HISTORY: Includes: 1. Back surgery x2. 2. Right total knee replacement done on 09/25/2012. 3. Breast surgery. 4. Carpal tunnel release. ALLERGIES: CITRUS, IODINE, SHELLFISH, SULFA, TERAZOL, AMOXICILLIN. CURRENT MEDICATIONS: Include: 1. Albuterol. 2. Aspirin. 3. Baclofen. 4. Dulcolax. 5. Diltiazem. 6. Advair Diskus. 7. Fluticasone nasal spray. 8. Xiidra. 9. Lyrica. 10. Nucynta. SOCIAL HISTORY: A 77-year-old female. She lives in [place]. Two drinks per month. Does not smo ke. FAMILY HISTORY: Noncontributory. REVIEW OF SYSTEMS: Significant for chronic back problems and recent back surgery years ago. No ches t pain or shortness of breath. No history of DVT or PE. No known bleeding problems. PHYSICAL EXAMINATION: GENERAL: Shows a pleasant, elderly female. Looks to me in reasonably good health. HEENT: Benign. NECK: Supple. No lymphadenopathy. LUNGS: Clear to auscultation. HEART: Regular rate and rhythm. ABDOMEN: Soft, nontender, nondistended. EXTREMITIES: Grossly neurovascularly intact except as follows. Examination of the right hip reveals the patient walks with a markedly antalgic gait. She clearly li mps on this right side. She has got a fairly stiff hip with internal rotation to neutral at best. T his does recreate pain. Negative straight leg raise. X-RAYS: X-rays of the right hip reveal advanced right hip DJD. She has complete loss of her joint s pace. Bone density looks pretty good. She does have an extensive spine fusion above. ASSESSMENT: A 77-year-old white female with multiple medical comorbidities including hypertension, a sthma, gastroesophageal reflux disease, obesity, chronic spine arthritis and pain, status post a prev ious right knee replacement with advanced right hip degenerative joint disease. Her hip arthritis cuellar s progressed significantly over the past year and has become more debilitating. She has failed conse rvative treatment and would like to have her right hip replaced. PLAN: We will plan on taking her to the operating room and do right total hip replacement. The risk s and benefits of this procedure were explained to the patient and include, but not limited to DVT, P E, , infection, neurological injury, vascular injury, bleeding problem, pain, limited range of m otion, stiffness, failure to relieve her symptoms, incomplete relief of symptoms, need for further sutton rgery in the future, dislocation, etc. The patient understands and desires to proceed. Informed con sent was obtained. We will do all we can to make her hip as stable as possible. Due to her spine surgery and fusion, hamilton cid is at increased risk for dislocation postoperatively. As far as discharge plans, she is hoping to go to [facility] in [place]. Hamilton cid went there after her spine surgery. Job ID: [id number]
[~2022-07-31 04:57] MED LIST: ACETAMINOPHEN 500 MG TAB PO SCH; ALLERGY Noted to ORDERED Medication SCH; CeleBREX 200 MG CAP PO SCH; FAMOTIDINE 20 MG TAB PO SCH; LR 500ML BOLUS, THEN 15ML/HR IV SCH; LR 60ML/HR IV SCH; METOCLOPRAMIDE HCL 10 MG TABLET PO SCH; TRANEXAMIC ACID 1,000 MG **IV Pre-op IV SCH
[2022-07-31] MEDS ORDERED: FAMOTIDINE 20 MG TAB PO SCH (06:00)
[2022-07-31] MEDS ORDERED: METOCLOPRAMIDE HCL 10 MG TABLET PO SCH (06:00)
[2022-07-31] MEDS ORDERED: ACETAMINOPHEN 500 MG TAB PO SCH ×3 (06:00→14:00)
[2022-07-31] MEDS ORDERED: LR 500ML BOLUS, THEN 15ML/HR IV SCH (06:00)
[2022-07-31] MEDS ORDERED: TRANEXAMIC ACID 1,000 MG **IV Pre-op IV SCH (06:00)
[2022-07-31] MEDS ORDERED: CeleBREX 200 MG CAP PO SCH (06:00)
[2022-07-31] MEDS ORDERED: BUPIVACAINE 0.5 % 5 MG/1 ML PF 10ML VIAL ONE (06:19)
[2022-07-31] MEDS ORDERED: MIDAZOLAM HCL 1 MG/ML 2ML VIAL ONE (06:35)
[2022-07-31] MEDS ORDERED: fentaNYL citrate 100 MCG/2 ML VIAL ONE (06:36)
[2022-07-31] MEDS ORDERED: BUPIVACAINE/EPINEPHRINE 0.5% MPF 1:200,000 30 ML VIAL ONE (06:36)
[2022-07-31] MEDS ORDERED: ePHEDrine sulfate 50 MG/ML AMP IV PRN (06:39)
[2022-07-31] MEDS ORDERED: fentaNYL citrate 100 MCG/2 ML VIAL IV PRN (06:39)
[2022-07-31] MEDS ORDERED: ATROPINE SULFATE 0.1 MG/ML 10ML SYR IV PRN (06:39)
[2022-07-31] MEDS ORDERED: ONDANSETRON INJ 2 MG/ML 2 ML VIAL IV PRN ×2 (06:39→10:15)
[2022-07-31] MEDS ORDERED: ceFAZolin 2000MG 2,000 MG/15 ML SYR IV ONE (06:51)
[2022-07-31] MEDS ORDERED: ceFAZolin 2,000 MG/15 ML IV PUSH IV ONE (06:52)
--- NOTE | 2022-07-31 06:57 | History & Physical Bridge Note ---
Date of Service July 31, 2022 History & Physical Bridge Note I have examined the patient, reviewed the History & Physical and in the interval since the performance of the History & Physical I have noted the following changes of clinical significance: no changes noted
[2022-07-31] MEDS ORDERED: LIDOCAINE 2% MPF LOCAL 5 ML VIAL INFIL ONE (07:18)
[2022-07-31] MEDS ORDERED: ONDANSETRON INJ 2 MG/ML 2 ML VIAL ONE (07:18)
[2022-07-31] MEDS ORDERED: PROPOFOL IV EMULSION 10 MG/ML 20 ML VIAL IV ONE (07:18)
--- NOTE | 2022-07-31 08:50 | Operative Report ---
PG Post Operative Report Pre & Post Diagnosis Operation Date: 07/31/22 07:00 Pre-Op Diagnosis: Right Hip Degenerative Joint Disease Post-Op Diagnosis: Right Hip Degenerative Joint Disease I identified the patient and participated in the time-out.: Yes Procedure Operation Date: 07/31/22 07:00 Actual Procedures p Right Total Hip Arthroplasty(Right) - Paul Lira MD Surgeon Paul Lira MD Supervisor [employer] Yogesh Townsend PA-C Estimated Blood Loss 200 Findings Consistent with Post-Op Diagnosis Operative findings were advanced right hip DJD with grade 4 [id number] disease of the femoral head and acetabulum. Fluids 1200 cc Specimens Right femoral head sent for pathology Drains None Anesthesia Type Spinal MAC Complications none Disposition Accompanied Patient To Recovery: No Indications Patient 77-year-old female has had a history of multiple orthopedic Problems over the years. She has a history of a several pretty extensive back surgeries. Over the past 2 years she has developed increased pain discomfort right hip that is progressed both clinically and radiographically. She failed conservative measures. She elected proceed with total hip arthroplasty. Description of Procedure Operative implants consist of: 1 Biomet G7 size 50 mm acetabular shell. 2. [place] hole limiter. 3. 6.5 cancellous acetabular screws 1 of 35 mm length and 1 of 30 mm length. 4. Highly cross-linked polyethylene liner with a 50 mm outer diameter and 36 mm inner diameter. 5. DePuy Corail size 10 KLA femoral stem. 6. +1.5/36 mm ceramic articular ball. The patient was taken the operating, identified, placed on the operating table supine position with all contractors were appropriately padded. IV antibiotics tried by anesthesia team. A spinal anesthetic and been implemented holding area. Bentley catheter was placed in sterile fashion. Patient then placed in the left lateral cubitus position. Axillary roll was placed Stulberg hip positioner was used for positioning. The right hip and leg were then prepped and draped in usual sterile fashion. A posterolateral approach to the right hip was then performed through a curvilinear incision centered over the greater trochanter. Sharp dissection was carried through subcutaneous tissue down below the IT band gluteal fascia. IT band gluteal fascia incised longitudinally in line with skin incision. The underlying greater bursa was excised. The piriformis and external rotators along with the hip joint capsule released from the posterior aspect hip taking great care to protect the sciatic nerve at all times. Hip was internally rotated and dislocated. Femoral neck osteotomy cut was made with Final Cut 15 mm above the lesser trochanter. Femoral head was removed and sent for pathology. The femur was retracted anteriorly. Attention drawn the acetabulum. The acetabular labrum was excised. The pulmonary fat was excised. Sequential reaming the acetabular was then performed. We began with a 43 reamer and progressed up to a 49. Reamed a little bit with a 50 reamer and then placed a 50 mm cup in about 40 degrees lateral opening and 20 degrees of anteversion. A trial liner was placed. We elect to use a large head due to her history of spine surgery and increased risk for instability. Attention drawn the femur. Proximal femur was entered with cookie-cutter followed by canal finder. Then broached beginning size 8 and progressing up to 10. We got excellent fit and the 10. We trialed the hip. The +5 articular ball just seemed a bit tight and to increase length just slightly. Therefore we elected to use the +1.5. The hip was fully stable full extension and external rotation and flexion to 9 degrees internal Tatian over [address] I elect to place these implants. All trial implants were removed. [place] hole limiter was placed. Highly cross- linked polyethylene liner was placed. A DePuy size 10 KLA femoral stem was impacted in position. A +1.5/36 mm ceramic articular ball was then placed. Hip was located and once again found to be stable. Attention drawn to closing. The wounds irrigated cosigns pulsatile lavage solution. I injected locally with 60 cc of half percent Marcaine with epinephrine. The posterior capsule and external rotators were repaired through drill holes in the posterior trochanter as a single layer with #2 Tycron suture. The IT band gluteal fascia then closed in 1 PDS suture running fashion for the subcutaneous tissue then closed with 2 layers the deep layer #2 Vicryl suture and subcutaneous tissues with 2-0 Dexon suture in a buried interrupted fashion. The skin was closed with skin riya. We then placed a Prevena VAC wound VAC to the large thick soft tissue envelope. The patient was then transferred to the recovery room in stable condition. Patient tolerated the procedure well and there were no complications. Yogesh Townsend, my physician assistant auto center manager, was present for the entire procedure. His assistance was essential and required for appropriate patient positioning, prepping and draping, surgical exposure, performing the technical details of the operation, placement the implants, closure of the wound, and placement of the sterile bandage. I attest to the content of the Intraoperative Record and any orders documented therein. Any exceptions are noted below.
--- NOTE | 2022-07-31 09:12 | Anesthesiology Progress Note ---
Date of Service July 31, 2022 Anesthesia Post Procedure Vital Signs Vital Signs: Temp Pulse Pulse Resp BP Pulse Ox O2 Del Method 07/31/22 09:00 74 15 123/67 95 Room Air 07/31/22 08:50 71 14 129/66 99 Oxymask 07/31/22 08:43 97.3 F L 75 16 126/64 96 Oxymask 07/31/22 06:17 98.4 F 87 16 142/72 H 94 Room Air O2 Flow Rate 07/31/22 09:00 07/31/22 08:50 5 07/31/22 08:43 5 07/31/22 06:17 Pain Intensity Right Hip: Pain Intensity: 8 Head: Pain Intensity: 5 Transfer of Care Handoff Completed per policy Notes Mental Status: alert / awake / arousable and participated in evaluation Patient Amnestic to Procedure: Yes Nausea / Vomiting: adequately controlled Pain: adequately controlled Airway Patency, RR, SpO2: stable & adequate BP & HR: stable & adequate Hydration State: stable & adequate Neuraxial Anesthesia: was administered and sensory block is resolving Anesthetic Complications: no major complications apparent and Pt Satisfied with anesthetic care
[2022-07-31] MEDS ORDERED: EPINEPHrine ADULT AUTO-INJECT 0.3 MG SYR IM PRN (10:15)
[2022-07-31] MEDS ORDERED: HYDROmorphone INJ 0.5 MG/0.5 ML SYR IV PRN (10:15)
[2022-07-31] MEDS ORDERED: NALOXONE HCL 0.4 MG/1 ML VIAL/CARP IV PRN (10:15)
[2022-07-31] MEDS ORDERED: METOCLOPRAMIDE HCL INJ 5 MG/ML 2 ML VIAL IV PRN (10:15)
[2022-07-31] MEDS ORDERED: bisacodyL 10 MG SUPP PR PRN (10:15)
[2022-07-31] MEDS ORDERED: BACLOFEN 10 MG TAB PO PRN (10:15)
[2022-07-31] MEDS ORDERED: ALBUTEROL HFA 8 GM INHALER INH PRN (10:15)
[2022-07-31] MEDS ORDERED: DOCUSATE SODIUM/SENNA 50/8.6MG TAB PO SCH (10:15)
[2022-07-31] MEDS ORDERED: ALUMINUM/MAGNESIUM SUSP 30 ML UDC PO PRN (10:15)
[2022-07-31] MEDS ORDERED: dexAMETHasone 10 MG in SYRINGE 0 ML IV SCH (10:45)
[2022-07-31] MEDS: DOCUSATE SODIUM 100 MG CAP PO SCH ×2 (11:20→20:03)
[2022-07-31] MEDS: KETOROLAC TROMETHAMINE 15 MG/ML VIAL IV SCH ×3 (11:20→22:59)
[2022-07-31] MEDS: bisacodyL 5 MG TABEC PO SCH ×2 (11:20→20:03)
[2022-07-31] MEDS: ACETAMINOPHEN 500 MG TAB PO SCH ×3 (11:20→20:03)
[2022-07-31] MEDS: ASPIRIN 81 MG ECTAB PO SCH ×2 (11:20→20:03)
[2022-07-31] MEDS: dilTIAZem HCL 120 MG CAPCR PO SCH (11:21)
[2022-07-31] MEDS: MULTIVITAMIN TAB PO SCH (11:21)
[2022-07-31] MEDS: MAGNESIUM OXIDE 400 MG TAB PO SCH (11:21)
[2022-07-31] MEDS: FLUTICASONE/VILANTEROL 200/25MCG 14 PUFFS/INHALER INH SCH (11:21)
[2022-07-31] MEDS: FLUTICASONE PROPIONATE NA SPR 16 GM BTL NAE PRN (11:22)
[2022-07-31] MEDS ORDERED: LR 60ML/HR IV SCH (11:30)
[2022-07-31] MEDS: SODIUM CHLORIDE 0.9% 1000ML 1,000 ML IV SCH ×2 (11:30→21:43)
[2022-07-31] MEDS: PREGABALIN 100 MG CAP PO SCH ×3 (11:30→20:02)
--- NOTE | 2022-07-31 11:48 | XRay Report ---
XR hip 1V RT w pelvis CLINICAL HISTORY: Postoperative evaluation. COMPARISON: Right hip radiograph April 29, 2022. FINDINGS: Alignment of the total right hip arthroplasty is anatomic. There is no periprosthetic frac ture or unexpected radiopaque foreign body. There are skin riya. IMPRESSION: Expected findings following total right hip arthroplasty. ACT 112: Negative or not required by law. Electronically signed by: Efren Armando M.D. 07/31/2022 11:47 AM
[2022-07-31] MEDS: ceFAZolin 1000MG 1,000 MG/7.5 ML SYR IV SCH ×2 (13:28→23:00)
[2022-07-31] MEDS ORDERED: TRANEXAMIC ACID / 0.7% NACL 1,000 MG/100 ML BAG IV SCH (14:45)
[2022-07-31] MEDS: ASCORBIC ACID 500 MG TAB PO SCH ×2 (16:57→16:58)
--- NOTE | 2022-07-31 17:19 | Progress Notes ---
DATE OF SERVICE: 07/31/2022. SUBJECTIVE: A 77-year-old white female postoperative from right total hip replacement. She is doing pretty well. I had to wake her this afternoon when I went to the room. Her pain is controlled. No chest pain or shortness of breath. Not feeling dizzy or lightheaded. OBJECTIVE: VITAL SIGNS: Temperature 37.0. Vital signs are stable. GENERAL: Shows a pleasant, elderly female. I had to wake her. She is currently awake, alert and or iented. LUNGS: Clear to auscultation. HEART: Regular rate and rhythm. ABDOMEN: Soft, nontender, nondistended. EXTREMITIES: Grossly neurovascularly intact except as follows. Examination of the right hip and leg reveals her leg lengths are equal. Hip is located. Dressing is clean, dry and intact. Her thigh-high is soft and supple. She can dorsiflex and plantarflex her fo ot appropriately. X-RAYS: X-rays of the right hip from recovery room are reviewed. She has right uncemented hip repla cement. Components looked to be in good position. No signs of problems. ASSESSMENT: A 77-year-old white female postoperative from right hip replacement, doing well. Pain i s controlled. Hip is located. She is neurologically intact. PLAN: 1. DVT prophylaxis includes thigh-high TEDs, SCDs, and aspirin twice a day. 2. PT/OT, weightbear as tolerated. Right total hip protocol. 3. Pain control, doing okay with current pain regimen. 4. IV antibiotics x24 hours. 5. Disposition. She is hoping to go to rehab at the [facility] rehab center. director of patient financial services work ing on that. Job ID: [id number]
[2022-07-31] MEDS: TAPENTADOL HCL 50 MG TAB PO PRN (20:01)
[2022-07-31] MEDS: SENNA 8.6 MG TAB PO SCH (20:03)
[2022-07-31] MEDS: HYDROmorphone HCL 2 MG TAB PO PRN (21:28)
[2022-08-01] MEDS: TAPENTADOL HCL 50 MG TAB PO PRN (03:53)
[2022-08-01] MEDS: KETOROLAC TROMETHAMINE 15 MG/ML VIAL IV SCH ×4 (03:53→22:46)
[2022-08-01] MEDS: HYDROmorphone HCL 2 MG TAB PO PRN (04:51)
[2022-08-01] MEDS: ASCORBIC ACID 500 MG TAB PO SCH ×2 (07:44→16:46)
[2022-08-01] MEDS: FLUTICASONE/VILANTEROL 200/25MCG 14 PUFFS/INHALER INH SCH (08:44)
[2022-08-01] MEDS: MAGNESIUM OXIDE 400 MG TAB PO SCH (08:45)
[2022-08-01] MEDS: FLUTICASONE PROPIONATE NA SPR 16 GM BTL NAE PRN (08:45)
[2022-08-01] MEDS: ACETAMINOPHEN 500 MG TAB PO SCH ×3 (08:45→20:22)
[2022-08-01] MEDS: dilTIAZem HCL 120 MG CAPCR PO SCH (08:46)
[2022-08-01] MEDS: ASPIRIN 81 MG ECTAB PO SCH ×2 (08:46→20:23)
[2022-08-01] MEDS: bisacodyL 5 MG TABEC PO SCH ×2 (08:46→20:23)
[2022-08-01] MEDS: MULTIVITAMIN TAB PO SCH (08:47)
[2022-08-01] MEDS: DOCUSATE SODIUM 100 MG CAP PO SCH ×2 (08:47→20:23)
[2022-08-01] MEDS: PREGABALIN 100 MG CAP PO SCH ×3 (08:49→20:23)
[2022-08-01] MEDS: MAGNESIUM HYDROXIDE SUSP 30 ML UDC PO PRN ×2 (08:49→13:48)
[2022-08-01 09:17] LABS: Basophils # (auto) 0.02 K/uL (0-0.2); Basophils % (auto) 0.1 %; Hematocrit (blood only) 33.6 % (37.0-47.0); Hemoglobin 11.1 g/dl (12.0-16.0); Immature Granulocytes % (auto) 0.7 %; Lymphocytes # (auto) 1.35 K/uL (1.2-3.4); Lymphocytes % (auto) 9.2 %; Mean Corpuscular Hemoglobin 29.7 pg (25.0-34.0); Mean Corpuscular Volume 89.8 fL (80.0-100.0); Mean Platelet Volume 9.7 fL (9.4-12.4); Monocytes % (auto) 4.1 %; Neutrophils # (auto) 12.54 K/uL (1.40-6.50); Neutrophils % (auto) 85.9 %; Platelet Count 213 K/uL (130-400); RDW Standard Deviation 49.1 fL (36.4-46.3); Red Blood Count 3.74 M/uL (4.20-5.40); White Blood Count 14.61 K/ul (4.8-10.8)
[2022-08-01 09:32] LABS: BUN Creatinine Ratio 20.4 (10-20); Est GFR (African American) 106.2 ml/min; Est GFR (Non-African American) 91.7 ml/min
--- NOTE | 2022-08-01 17:43 | Progress Notes ---
SUBJECTIVE: A 77-year-old white female postoperative day 1 from a right hip replacement. She is doi ng well. Pain has been controlled. She has been walking some. No chest pain or shortness of breath . Not feeling dizzy or lightheaded. OBJECTIVE: VITAL SIGNS: Temperature 36.8. Vital signs are stable. GENERAL: Shows a pleasant, elderly female. She is sitting up in her bedside chair. She looks comfo rtable. EXTREMITIES: Examination of the right hip and leg reveals the Prevena VAC dressing to be in place. Leg lengths were equal. Hip is located. Thigh is soft and supple. NEUROLOGIC: She is neurologically intact. LABORATORY DATA: Hemoglobin 11.1. Hematocrit 33.6. White cell count 14.61. Electrolytes are stabl e. ASSESSMENT: A 77-year-old white female postoperative day 1 from right total hip replacement, doing p retty well. Pain is controlled. Hip is located. She is neurologically intact. PLAN: 1. DVT prophylaxis includes thigh-high TEDs, SCDs, and aspirin twice a day. 2. PT, OT, weightbear as tolerated. Right total hip protocol. 3. Pain control, doing okay with current pain regimen. 4. Disposition: Plan to discharge to a [facility] facility. She is hoping to go somewhere in [place] to a rehab center. I believe she needs to have 3 nights stay and I would look for bed mook silva. Job ID: [id number]
[2022-08-01] MEDS: SENNA 8.6 MG TAB PO SCH (20:23)
[2022-08-02] MEDS: KETOROLAC TROMETHAMINE 15 MG/ML VIAL IV SCH (04:27)
--- NOTE | 2022-08-02 07:47 | Progress Notes ---
DATE OF NOTE: 08/02/2022 SUBJECTIVE: A 77-year-old white female postoperative day 2 from a right hip replacement. She is doi ng pretty well. Pain is controlled. No chest pain or shortness of breath. Just waiting for placeme nt. She has to stay 3 nights go to rehabilitation. OBJECTIVE: VITAL SIGNS: Temperature 36.4. Vital signs are stable. GENERAL: Shows a pleasant middle-aged female. She is sitting up in her bedside chair this morning a nd looks pretty comfortable. EXTREMITIES: Examination of the right hip reveals the dressing to be clean, dry and intact. Leg pérez gths were equal. Thigh is soft and supple. She is neurologically intact. ASSESSMENT: A 77-year-old white female postoperative day 2 from right total hip replacement, doing p retty well. Pain is controlled. Hip is located. She is neurologically intact. Just waiting for pl acement. PLAN: 1. DVT prophylaxis including thigh-high TEDs, SCDs, and aspirin twice a day. 2. PT/OT, weightbear as tolerated. Right total hip protocol. 3. Pain control, doing okay with current pain regimen. 4. Disposition: Plan to be discharged to rehab in [place]. She needs a 3-night hospital stay and ho pefully get her there tomorrow. Job ID: [id number]
[2022-08-02] MEDS: DOCUSATE SODIUM 100 MG CAP PO SCH ×2 (07:51→20:52)
[2022-08-02] MEDS: ACETAMINOPHEN 500 MG TAB PO SCH ×3 (07:51→20:52)
[2022-08-02] MEDS: ASPIRIN 81 MG ECTAB PO SCH ×2 (07:51→20:51)
[2022-08-02] MEDS: ASCORBIC ACID 500 MG TAB PO SCH ×2 (07:51→16:21)
[2022-08-02] MEDS: MAGNESIUM OXIDE 400 MG TAB PO SCH (07:52)
[2022-08-02] MEDS: bisacodyL 5 MG TABEC PO SCH ×2 (07:52→20:52)
[2022-08-02] MEDS: dilTIAZem HCL 120 MG CAPCR PO SCH (07:52)
[2022-08-02] MEDS: MULTIVITAMIN TAB PO SCH (07:53)
[2022-08-02] MEDS: PREGABALIN 100 MG CAP PO SCH ×3 (07:54→20:55)
[2022-08-02] MEDS: HYDROmorphone HCL 2 MG TAB PO PRN (17:29)
[2022-08-02] MEDS: SENNA 8.6 MG TAB PO SCH (20:51)
[2022-08-02] MEDS ORDERED: Nursing to Pharmacy Communication SCH (21:15)
[2022-08-02] MEDS ORDERED: FLUTICASONE/VILANTEROL 200/25MCG 14 PUFFS/INHALER INH ONE (22:00)
[2022-08-03] MEDS: HYDROmorphone HCL 2 MG TAB PO PRN (05:20)
[2022-08-03] MEDS: ASCORBIC ACID 500 MG TAB PO SCH (08:16)
[2022-08-03] MEDS: ACETAMINOPHEN 500 MG TAB PO SCH (08:17)
[2022-08-03] MEDS: bisacodyL 5 MG TABEC PO SCH (08:17)
[2022-08-03] MEDS: dilTIAZem HCL 120 MG CAPCR PO SCH (08:18)
[2022-08-03] MEDS: MAGNESIUM OXIDE 400 MG TAB PO SCH (08:18)
[2022-08-03] MEDS: DOCUSATE SODIUM 100 MG CAP PO SCH (08:18)
[2022-08-03] MEDS: ASPIRIN 81 MG ECTAB PO SCH (08:18)
[2022-08-03] MEDS: MULTIVITAMIN TAB PO SCH (08:18)
[2022-08-03] MEDS: FLUTICASONE/VILANTEROL 200/25MCG 14 PUFFS/INHALER INH SCH (08:19)
[2022-08-03] MEDS: PREGABALIN 100 MG CAP PO SCH (08:24)
--- NOTE | 2022-08-03 08:36 | Progress Notes ---
DATE OF SERVICE: 08/03/2022 SUBJECTIVE: A 77-year-old white female now postoperative day 3 from a right hip replacement. She is doing okay. Having a moderate amount of pain. She is getting around reasonably well with assistanc e. No chest pain or shortness of breath. Just been waiting for placement for the past day to 2 days . OBJECTIVE: VITAL SIGNS: Temperature 36.5. Vital signs are stable. PHYSICAL EXAMINATION: GENERAL: Physical exam shows a pleasant, elderly female. She ambulates in a room with a walker. MUSCULOSKELETAL: Examination of the right hip reveals Prevena VAC dressing to be in place. Thigh is soft and supple. Leg lengths are equal. She is neurologically intact. ASSESSMENT: A 77-year-old female postoperative day 3 from a right total hip replacement, doing okay. She has been waiting for placement. Apparently, a bit of trouble getting in touch with [facility] and they have not called back. She has elected to try to go home with some home health and her grandson's assistance. PLAN: 1. DVT prophylaxis to include thigh-high TEDs, SCDs, and aspirin twice a day. 2. PT, OT, and weightbear as tolerated. Right total hip protocol. 3. Pain control, doing okay with current pain regimen. 4. Disposition: Plan is to discharge her home with some home health and her grandson's assistance. Job ID: [id number]
[2022-08-03] MEDS: TAPENTADOL HCL 50 MG TAB PO PRN (11:40)
--- NOTE | 2022-08-06 14:23 | Discharge Summary ---
Date of Service August 06, 2022 Discharge Data Procedures Performed Operation Date: 07/31/22 07:00 Actual Procedures p Right Total Hip Arthroplasty(Right) - Paul Lira MD Hospital Course (1) S/P total right hip arthroplasty: This is a 77 year old patient admitted on 07/31/22 and underwent total hip arthroplasty. She tolerated the procedure well and there were no complications. Transferred to the PACU post op and later to the orthopedic floor for further care. She was given ancef for antibiotic prophylaxis. She was also given JASPAL stockings, SCDs, and aspirin for DVT prophylaxis. Hemoglobin, hematocrit, and vital signs were monitored during her hospital stay and remained stable. Did not require any blood transfusions. There were no complications during her hospital stay. By post op day #3 the patient was tolerating a regular diet, pain was reasonably controlled with oral pain medicine, and she was participating in physical therapy. On post op day #3 the patient was discharged home and set up with home health care. She was given printed discharge instructions including prescriptions for extra strength tylenol, aspirin, cefadroxil, ketorolac, zofran, senokot, and hydromorphone. Continue physical therapy, weight bearing as tolerated. Continue hip precautions. Continue JASPAL stockings. Follow up approximately 2 weeks post op or sooner if there are problems or concerns. Coding Level of Care Code None Diagnoses S/P total right hip arthroplasty Z96.641
== END 2022-08-03 13:00 | disposition home health service (06) | DRG 470 ==
LOC: 3W 04:57 → ASU 04:57